=== PATIENT | female | born 1945 | race Caucasian/White ===

== ENCOUNTER 2017-06-01 16:48 | Inpatient (IN) ==
[2017-06-01 18:07] LABS: Basophils # 0.1 10*3/uL (0.0-0.2); Basophils % 0.9 % (0.0-0.8); Eosinophils # 0.1 10*3/uL (0.0-0.87); Eosinophils % 0.6 % (0.00-10.9); Hematocrit 34.2 VOL% (35.7-47.0); Hemoglobin 11.1 GM/DL (12.0-16.0); Immature Granulocytes % 0.6 %; Immature Granulocytes Absolute 0.05 #; Lymphocytes # 1.9 10*3/uL (1.4-4.0); Lymphocytes % 21.4 % (21.3-54.2); Mean Corpuscular HGB Conc 32.5 GM/DL (32-36); Mean Corpuscular Hemoglobin 31 PG (27-34); Mean Corpuscular Volume 95.3 FL (87-102); Mean Platelet Volume 10.6 FL (9.6-12.0); Monocytes # 0.7 10*3/uL (0.11-0.8); Monocytes % 8.3 % (1.7-12.7); Neutrophils # 6.1 10*3/uL (1.4-7.4); Neutrophils % 68.2 % (38.7-73.9); Platelet Count 172 T/CUMM (130-400); Red Blood Count 3.59 MC/CUMM (3.8-5.5); Red Cell Distribution Width 14.6 % (9.3-17.3); White Blood Count 8.9 T/CUMM (4-12)
[2017-06-01] MEDS ORDERED: FUROSEMIDE 40 MG/4 ML VIAL IV STA (19:28)
[2017-06-01] MEDS ORDERED: FUROSEMIDE 40 MG/4 ML VIAL ONE (20:12)
[2017-06-01 20:14] LABS: Apearance,Urine Slightly Hazy (Clear); Bacteria,Urine Occasional /HPF (Few); Bilirubin,Urine Negative (Negative); Blood, Urine Negative (Negative); Glucose,Urine (UA) Negative (Negative); Ketones,Urine Negative (Negative); Nitrite,Urine Negative (Negative); Protein,Urine Negative; RBC,Urine 1 /HPF (0-4); Squamous Epithelial Cell,Urine Occasional /HPF (0-10); Urine Color Yellow (Yellow); Urine Specific Gravity 1.012 (1.001-1.035); WBC,Urine 5 /HPF (0-6)
[2017-06-01] MEDS ORDERED: ACETAMINOPHEN 500 MG TABLET PO STA (20:57)
[2017-06-01] MEDS ORDERED: ACETAMINOPHEN 500 MG TABLET ONE (21:06)
[2017-06-01] MEDS ORDERED: cefTRIAXone 1,000 MG VIAL ONE (22:14)
[2017-06-01] MEDS ORDERED: ONDANSETRON 4 MG/2 ML VIAL IV PRN (22:27)
[2017-06-01] MEDS ORDERED: NITROGLYCERIN SL 0.4 MG TABLET SL PRN (22:28)
[2017-06-01] MEDS: cefTRIAXone 1,000 MG in SYRINGE 1 EACH IV SCH (22:35)
[2017-06-02 06:48] LABS: Red Blood Count 3.52 MC/CUMM (3.8-5.5); White Blood Count 7.8 T/CUMM (4-12)
[2017-06-02 06:49] LABS: Basophils # 0.1 10*3/uL (0.0-0.2); Basophils % 0.8 % (0.0-0.8); Eosinophils # 0.1 10*3/uL (0.0-0.87); Eosinophils % 1.2 % (0.00-10.9); Immature Granulocytes % 0.4 %; Immature Granulocytes Absolute 0.03 #; Lymphocytes # 1.7 10*3/uL (1.4-4.0); Lymphocytes % 21.9 % (21.3-54.2); Mean Corpuscular HGB Conc 32.4 GM/DL (32-36); Mean Corpuscular Hemoglobin 31 PG (27-34); Mean Corpuscular Volume 96.6 FL (87-102); Mean Platelet Volume 10.7 FL (9.6-12.0); Monocytes # 0.8 10*3/uL (0.11-0.8); Monocytes % 9.6 % (1.7-12.7); Neutrophils # 5.2 10*3/uL (1.4-7.4); Neutrophils % 66.1 % (38.7-73.9); Platelet Count 140 T/CUMM (130-400); Red Cell Distribution Width 14.8 % (9.3-17.3)
[2017-06-02 07:22] LABS: Calcium 8.5 MG/DL (8.5-10.1); Osmolality,Calculated 283.4 MOS/KG (273-304); Potassium 3.8 MMOL/L (3.5-5.1)
[2017-06-02] MEDS ORDERED: hydrALAZINE 20 MG/1 ML VIAL IV PRN (07:52)
[2017-06-02] MEDS ORDERED: FUROSEMIDE 40 MG TABLET PO SCH (09:00)
[2017-06-02] MEDS: OLMESARTAN 20 MG TABLET PO SCH (09:30)
[2017-06-02] MEDS: AZITHROMYCIN 250 MG TABLET PO SCH (09:30)
[2017-06-02] MEDS: CITALOPRAM 20 MG TABLET PO SCH (09:30)
[2017-06-02] MEDS: ALLOPURINOL 300 MG TABLET PO SCH (09:31)
[2017-06-02] MEDS: METOPROLOL TARTRATE 50 MG TABLET PO SCH ×2 (09:31→21:27)
[2017-06-02] MEDS: CLOPIDOGREL 75 MG TABLET PO SCH (09:31)
[2017-06-02] MEDS: POTASSIUM CHLORIDE 20 MEQ TABLET PO SCH (09:31)
[2017-06-02] MEDS: PANTOPRAZOLE 40 MG TABLET PO SCH (09:32)
[2017-06-02] MEDS: FUROSEMIDE 40 MG/4 ML VIAL IV SCH ×2 (09:33→15:33)
[2017-06-02] MEDS: APIXABAN 5 MG TABLET PO SCH ×2 (09:33→21:26)
[2017-06-02] MEDS: ASPIRIN CHEW 81 MG TABLET PO SCH (09:33)
[2017-06-02] MEDS: ALBUTEROL/IPRATROPIUM 3 ML NEB RESP TX SCH ×2 (13:39→19:50)
[2017-06-02] MEDS: ATORVASTATIN 40 MG TABLET PO SCH (21:26)
[2017-06-02] MEDS: cefTRIAXone 1,000 MG in SYRINGE 1 EACH IV SCH (21:27)
[2017-06-03] MEDS: ALBUTEROL/IPRATROPIUM 3 ML NEB RESP TX SCH ×4 (00:42→19:50)
[2017-06-03] MEDS: CITALOPRAM 20 MG TABLET PO SCH (09:57)
[2017-06-03] MEDS: POTASSIUM CHLORIDE 20 MEQ TABLET PO SCH (09:57)
[2017-06-03] MEDS: ASPIRIN CHEW 81 MG TABLET PO SCH (09:57)
[2017-06-03] MEDS: OLMESARTAN 20 MG TABLET PO SCH (09:57)
[2017-06-03] MEDS: ALLOPURINOL 300 MG TABLET PO SCH (09:57)
[2017-06-03] MEDS: APIXABAN 5 MG TABLET PO SCH ×2 (09:57→20:09)
[2017-06-03] MEDS: CLOPIDOGREL 75 MG TABLET PO SCH (09:58)
[2017-06-03] MEDS: AZITHROMYCIN 250 MG TABLET PO SCH (09:58)
[2017-06-03] MEDS: PANTOPRAZOLE 40 MG TABLET PO SCH (09:58)
[2017-06-03] MEDS: METOPROLOL TARTRATE 50 MG TABLET PO SCH ×2 (09:58→20:09)
[2017-06-03] MEDS: FUROSEMIDE 40 MG/4 ML VIAL IV SCH ×2 (09:59→15:39)
[2017-06-03] MEDS: cefTRIAXone 1,000 MG in SYRINGE 1 EACH IV SCH (20:08)
[2017-06-03] MEDS: ATORVASTATIN 40 MG TABLET PO SCH (20:09)
[2017-06-04] MEDS: ALBUTEROL/IPRATROPIUM 3 ML NEB RESP TX SCH ×4 (00:05→19:06)
[2017-06-04 05:44] LABS: Basophils # 0.1 10*3/uL (0.0-0.2); Basophils % 0.9 % (0.0-0.8); Eosinophils # 0.1 10*3/uL (0.0-0.87); Eosinophils % 1.4 % (0.00-10.9); Hematocrit 30.6 VOL% (35.7-47.0); Hemoglobin 10.1 GM/DL (12.0-16.0); Immature Granulocytes % 0.3 %; Immature Granulocytes Absolute 0.03 #; Lymphocytes % 23.3 % (21.3-54.2); Mean Corpuscular Hemoglobin 31 PG (27-34); Mean Corpuscular Volume 94.2 FL (87-102); Mean Platelet Volume 11.4 FL (9.6-12.0); Monocytes # 0.7 10*3/uL (0.11-0.8); Monocytes % 8.1 % (1.7-12.7); Neutrophils # 5.7 10*3/uL (1.4-7.4); Platelet Count 178 T/CUMM (130-400); Red Blood Count 3.25 MC/CUMM (3.8-5.5); Red Cell Distribution Width 14.6 % (9.3-17.3); White Blood Count 8.6 T/CUMM (4-12)
[2017-06-04 06:24] LABS: Calcium 8.5 MG/DL (8.5-10.1); Magnesium 1.9 MG/DL (1.8-2.4); Osmolality,Calculated 284.3 MOS/KG (273-304); Potassium 3.5 MMOL/L (3.5-5.1)
[2017-06-04] MEDS: POTASSIUM CHLORIDE 20 MEQ TABLET PO SCH (09:17)
[2017-06-04] MEDS: OLMESARTAN 20 MG TABLET PO SCH (09:17)
[2017-06-04] MEDS: METOPROLOL TARTRATE 50 MG TABLET PO SCH ×2 (09:17→20:58)
[2017-06-04] MEDS: PANTOPRAZOLE 40 MG TABLET PO SCH (09:17)
[2017-06-04] MEDS: AZITHROMYCIN 250 MG TABLET PO SCH (09:17)
[2017-06-04] MEDS: APIXABAN 5 MG TABLET PO SCH ×2 (09:17→20:58)
[2017-06-04] MEDS: ALLOPURINOL 300 MG TABLET PO SCH (09:17)
[2017-06-04] MEDS: CLOPIDOGREL 75 MG TABLET PO SCH (09:17)
[2017-06-04] MEDS: CITALOPRAM 20 MG TABLET PO SCH (09:17)
[2017-06-04] MEDS: FUROSEMIDE 40 MG/4 ML VIAL IV SCH ×2 (09:17→15:52)
[2017-06-04] MEDS: ASPIRIN CHEW 81 MG TABLET PO SCH (09:18)
[2017-06-04] MEDS: guaiFENesin/DM ER 600-30 MG TABLET PO SCH (20:57)
[2017-06-04] MEDS: BENZONATATE 100 MG CAPSULE PO SCH (20:57)
[2017-06-04] MEDS: ATORVASTATIN 40 MG TABLET PO SCH (20:57)
[2017-06-04] MEDS: cefTRIAXone 1,000 MG in SYRINGE 1 EACH IV SCH (20:58)
[2017-06-05] MEDS ORDERED: ACETAMINOPHEN 325 MG TABLET PO PRN (00:30)
[2017-06-05] MEDS: ALBUTEROL/IPRATROPIUM 3 ML NEB RESP TX SCH ×4 (00:47→19:30)
[2017-06-05] MEDS: LEVOFLOXACIN INJ 750 MG in PREMIX 1 EACH IV SCH (01:00)
[2017-06-05 06:27] LABS: Basophils # 0.1 10*3/uL (0.0-0.2); Eosinophils # 0.3 10*3/uL (0.0-0.87); Eosinophils % 3.2 % (0.00-10.9); Hematocrit 31.2 VOL% (35.7-47.0); Immature Granulocytes % 0.4 %; Immature Granulocytes Absolute 0.03 #; Lymphocytes % 25.2 % (21.3-54.2); Mean Corpuscular HGB Conc 32.1 GM/DL (32-36); Mean Corpuscular Hemoglobin 31 PG (27-34); Mean Corpuscular Volume 96.9 FL (87-102); Mean Platelet Volume 11.2 FL (9.6-12.0); Monocytes # 0.7 10*3/uL (0.11-0.8); Monocytes % 8.6 % (1.7-12.7); Neutrophils % 61.6 % (38.7-73.9); Platelet Count 187 T/CUMM (130-400); Red Blood Count 3.22 MC/CUMM (3.8-5.5); Red Cell Distribution Width 14.7 % (9.3-17.3); White Blood Count 8.1 T/CUMM (4-12)
[2017-06-05 06:43] LABS: Calcium 8.1 MG/DL (8.5-10.1); Magnesium 1.8 MG/DL (1.8-2.4); Osmolality,Calculated 283.3 MOS/KG (273-304); Potassium 3.6 MMOL/L (3.5-5.1)
[2017-06-05] MEDS: FUROSEMIDE 40 MG/4 ML VIAL IV SCH (09:43)
[2017-06-05] MEDS: APIXABAN 5 MG TABLET PO SCH ×2 (09:44→22:18)
[2017-06-05] MEDS: CLOPIDOGREL 75 MG TABLET PO SCH (09:44)
[2017-06-05] MEDS: OLMESARTAN 20 MG TABLET PO SCH (09:45)
[2017-06-05] MEDS: METOPROLOL TARTRATE 50 MG TABLET PO SCH ×2 (09:45→22:18)
[2017-06-05] MEDS: ALLOPURINOL 300 MG TABLET PO SCH (09:45)
[2017-06-05] MEDS: PANTOPRAZOLE 40 MG TABLET PO SCH (09:45)
[2017-06-05] MEDS: POTASSIUM CHLORIDE 20 MEQ TABLET PO SCH (09:46)
[2017-06-05] MEDS: CITALOPRAM 20 MG TABLET PO SCH (09:46)
[2017-06-05] MEDS: ASPIRIN CHEW 81 MG TABLET PO SCH (09:46)
[2017-06-05] MEDS: guaiFENesin/DM ER 600-30 MG TABLET PO SCH ×2 (09:46→22:18)
[2017-06-05] MEDS: BENZONATATE 100 MG CAPSULE PO SCH ×3 (09:46→22:18)
[2017-06-05] MEDS: ATORVASTATIN 40 MG TABLET PO SCH (22:18)
[2017-06-05] MEDS: HYDROcodone/CHLORPHENIRAMINE ER 5 ML UDCUP PO PRN (23:29)
[2017-06-06] MEDS: ALBUTEROL/IPRATROPIUM 3 ML NEB RESP TX SCH ×4 (01:45→19:32)
[2017-06-06] MEDS: LEVOFLOXACIN INJ 750 MG in PREMIX 1 EACH IV SCH (04:21)
[2017-06-06] MEDS ORDERED: COLCHICINE 0.6 MG TABLET PO ONE (04:40)
[2017-06-06 06:01] LABS: Basophils # 0.1 10*3/uL (0.0-0.2); Basophils % 1.3 % (0.0-0.8); Eosinophils # 0.2 10*3/uL (0.0-0.87); Eosinophils % 3.4 % (0.00-10.9); Hematocrit 29.8 VOL% (35.7-47.0); Hemoglobin 9.7 GM/DL (12.0-16.0); Immature Granulocytes % 0.3 %; Immature Granulocytes Absolute 0.02 #; Lymphocytes # 1.9 10*3/uL (1.4-4.0); Lymphocytes % 29.9 % (21.3-54.2); Mean Corpuscular HGB Conc 32.6 GM/DL (32-36); Mean Corpuscular Hemoglobin 31 PG (27-34); Mean Corpuscular Volume 95.5 FL (87-102); Mean Platelet Volume 11.1 FL (9.6-12.0); Monocytes # 0.5 10*3/uL (0.11-0.8); Monocytes % 7.8 % (1.7-12.7); Neutrophils # 3.6 10*3/uL (1.4-7.4); Neutrophils % 57.3 % (38.7-73.9); Platelet Count 189 T/CUMM (130-400); Red Blood Count 3.12 MC/CUMM (3.8-5.5); Red Cell Distribution Width 14.7 % (9.3-17.3); White Blood Count 6.3 T/CUMM (4-12)
[2017-06-06 06:33] LABS: Calcium 8.3 MG/DL (8.5-10.1); Magnesium 1.8 MG/DL (1.8-2.4); Osmolality,Calculated 285.3 MOS/KG (273-304)
[2017-06-06] MEDS: ASPIRIN CHEW 81 MG TABLET PO SCH (10:09)
[2017-06-06] MEDS: guaiFENesin/DM ER 600-30 MG TABLET PO SCH ×2 (10:09→20:52)
[2017-06-06] MEDS: APIXABAN 5 MG TABLET PO SCH ×2 (10:10→20:51)
[2017-06-06] MEDS: OLMESARTAN 20 MG TABLET PO SCH (10:10)
[2017-06-06] MEDS: CITALOPRAM 20 MG TABLET PO SCH (10:10)
[2017-06-06] MEDS: METOPROLOL TARTRATE 50 MG TABLET PO SCH ×2 (10:11→20:51)
[2017-06-06] MEDS: ALLOPURINOL 300 MG TABLET PO SCH (10:11)
[2017-06-06] MEDS: PANTOPRAZOLE 40 MG TABLET PO SCH (10:11)
[2017-06-06] MEDS: BENZONATATE 100 MG CAPSULE PO SCH ×3 (10:11→20:51)
[2017-06-06] MEDS: COLCHICINE 0.6 MG TABLET PO SCH ×2 (17:43→20:04)
[2017-06-06] MEDS: ATORVASTATIN 40 MG TABLET PO SCH (20:51)
[2017-06-07] MEDS: ALBUTEROL/IPRATROPIUM 3 ML NEB RESP TX SCH ×4 (00:03→19:53)
[2017-06-07 06:57] LABS: Basophils # 0.1 10*3/uL (0.0-0.2); Basophils % 1.5 % (0.0-0.8); Eosinophils # 0.2 10*3/uL (0.0-0.87); Eosinophils % 3.8 % (0.00-10.9); Hematocrit 30.3 VOL% (35.7-47.0); Hemoglobin 9.6 GM/DL (12.0-16.0); Immature Granulocytes % 0.4 %; Immature Granulocytes Absolute 0.02 #; Lymphocytes # 1.9 10*3/uL (1.4-4.0); Lymphocytes % 35.5 % (21.3-54.2); Mean Corpuscular HGB Conc 31.7 GM/DL (32-36); Mean Corpuscular Hemoglobin 31 PG (27-34); Mean Corpuscular Volume 98.1 FL (87-102); Mean Platelet Volume 10.8 FL (9.6-12.0); Monocytes # 0.5 10*3/uL (0.11-0.8); Monocytes % 8.9 % (1.7-12.7); Neutrophils # 2.6 10*3/uL (1.4-7.4); Neutrophils % 49.9 % (38.7-73.9); Platelet Count 177 T/CUMM (130-400); Red Blood Count 3.09 MC/CUMM (3.8-5.5); Red Cell Distribution Width 14.6 % (9.3-17.3); White Blood Count 5.3 T/CUMM (4-12)
[2017-06-07 07:11] LABS: Calcium 8.8 MG/DL (8.5-10.1); Magnesium 1.8 MG/DL (1.8-2.4); Osmolality,Calculated 283.3 MOS/KG (273-304); Potassium 4.1 MMOL/L (3.5-5.1)
[2017-06-07] MEDS: LEVOFLOXACIN INJ 750 MG in PREMIX 1 EACH IV SCH (09:30)
[2017-06-07] MEDS: ALLOPURINOL 300 MG TABLET PO SCH (10:24)
[2017-06-07] MEDS: OLMESARTAN 20 MG TABLET PO SCH (10:25)
[2017-06-07] MEDS: CITALOPRAM 20 MG TABLET PO SCH (10:25)
[2017-06-07] MEDS: BENZONATATE 100 MG CAPSULE PO SCH ×3 (10:25→21:12)
[2017-06-07] MEDS: LEVOFLOXACIN 750 MG TABLET PO SCH (10:25)
[2017-06-07] MEDS: METOPROLOL TARTRATE 50 MG TABLET PO SCH ×2 (10:25→21:03)
[2017-06-07] MEDS: COLCHICINE 0.6 MG TABLET PO SCH ×2 (10:25→21:03)
[2017-06-07] MEDS: PANTOPRAZOLE 40 MG TABLET PO SCH (10:25)
[2017-06-07] MEDS: ASPIRIN CHEW 81 MG TABLET PO SCH (10:26)
[2017-06-07] MEDS: APIXABAN 5 MG TABLET PO SCH ×2 (10:26→21:02)
[2017-06-07] MEDS: guaiFENesin/DM ER 600-30 MG TABLET PO SCH ×2 (10:26→21:02)
[2017-06-07] MEDS: HYDROcodone/CHLORPHENIRAMINE ER 5 ML UDCUP PO PRN (16:24)
[2017-06-07] MEDS: ATORVASTATIN 40 MG TABLET PO SCH (21:03)
[2017-06-08] MEDS: HYDROcodone/CHLORPHENIRAMINE ER 5 ML UDCUP PO PRN (00:02)
[2017-06-08] MEDS: ALBUTEROL/IPRATROPIUM 3 ML NEB RESP TX SCH ×4 (00:12→18:57)
[2017-06-08 03:55] LABS: ABG Base Excess 2.7 MMOL/L (-2.5-2.5); ABG HCO3 27.2 MMOL/L (20-26); ABG Oxygen Saturation 94.3 % (95-100); ABG PCO2 41.5 MM HG (35-48); ABG PH 7.434 (7.35-7.45); ABG PO2 76.7 MM HG (80-95); ABG TCO2 28.5 MMOL/L (23-27)
[2017-06-08 05:57] LABS: Basophils # 0.1 10*3/uL (0.0-0.2); Basophils % 1.7 % (0.0-0.8); Eosinophils # 0.2 10*3/uL (0.0-0.87); Eosinophils % 3.6 % (0.00-10.9); Hematocrit 30.5 VOL% (35.7-47.0); Hemoglobin 9.7 GM/DL (12.0-16.0); Immature Granulocytes % 0.8 %; Immature Granulocytes Absolute 0.04 #; Lymphocytes # 1.7 10*3/uL (1.4-4.0); Lymphocytes % 32.1 % (21.3-54.2); Mean Corpuscular HGB Conc 31.8 GM/DL (32-36); Mean Corpuscular Hemoglobin 31 PG (27-34); Mean Corpuscular Volume 98.7 FL (87-102); Mean Platelet Volume 11.2 FL (9.6-12.0); Monocytes # 0.4 10*3/uL (0.11-0.8); Monocytes % 8.1 % (1.7-12.7); Neutrophils # 2.9 10*3/uL (1.4-7.4); Neutrophils % 53.7 % (38.7-73.9); Platelet Count 188 T/CUMM (130-400); Red Blood Count 3.09 MC/CUMM (3.8-5.5); Red Cell Distribution Width 14.5 % (9.3-17.3); White Blood Count 5.3 T/CUMM (4-12)
[2017-06-08 06:28] LABS: Calcium 8.7 MG/DL (8.5-10.1); Magnesium 1.7 MG/DL (1.8-2.4); Osmolality,Calculated 284.3 MOS/KG (273-304); Potassium 4.3 MMOL/L (3.5-5.1)
[2017-06-08] MEDS: LEVOFLOXACIN 750 MG TABLET PO SCH (09:28)
[2017-06-08] MEDS: guaiFENesin/DM ER 600-30 MG TABLET PO SCH ×2 (09:29→21:09)
[2017-06-08] MEDS: COLCHICINE 0.6 MG TABLET PO SCH ×2 (09:29→21:08)
[2017-06-08] MEDS: METOPROLOL TARTRATE 50 MG TABLET PO SCH ×2 (09:29→21:09)
[2017-06-08] MEDS: ALLOPURINOL 300 MG TABLET PO SCH (09:29)
[2017-06-08] MEDS: OLMESARTAN 20 MG TABLET PO SCH (09:29)
[2017-06-08] MEDS: BENZONATATE 100 MG CAPSULE PO SCH ×3 (09:29→21:09)
[2017-06-08] MEDS: POTASSIUM CHLORIDE 20 MEQ TABLET PO SCH (09:30)
[2017-06-08] MEDS: APIXABAN 5 MG TABLET PO SCH ×2 (09:30→21:09)
[2017-06-08] MEDS: PANTOPRAZOLE 40 MG TABLET PO SCH (09:30)
[2017-06-08] MEDS: ASPIRIN CHEW 81 MG TABLET PO SCH (09:30)
[2017-06-08] MEDS: CITALOPRAM 20 MG TABLET PO SCH (09:30)
[2017-06-08] MEDS: FUROSEMIDE 40 MG TABLET PO SCH (15:24)
[2017-06-08] MEDS: ATORVASTATIN 40 MG TABLET PO SCH (21:08)
[2017-06-09] MEDS: ALBUTEROL/IPRATROPIUM 3 ML NEB RESP TX SCH ×3 (00:52→13:43)
[2017-06-09] MEDS: HYDROcodone/CHLORPHENIRAMINE ER 5 ML UDCUP PO PRN (01:01)
[2017-06-09 06:36] LABS: Basophils # 0.1 10*3/uL (0.0-0.2); Basophils % 1.3 % (0.0-0.8); Eosinophils # 0.2 10*3/uL (0.0-0.87); Eosinophils % 3.2 % (0.00-10.9); Hematocrit 29.9 VOL% (35.7-47.0); Hemoglobin 9.5 GM/DL (12.0-16.0); Immature Granulocytes % 0.6 %; Immature Granulocytes Absolute 0.03 #; Lymphocytes # 1.8 10*3/uL (1.4-4.0); Lymphocytes % 34.9 % (21.3-54.2); Mean Corpuscular HGB Conc 31.8 GM/DL (32-36); Mean Corpuscular Hemoglobin 31 PG (27-34); Mean Corpuscular Volume 96.5 FL (87-102); Monocytes # 0.4 10*3/uL (0.11-0.8); Monocytes % 8.4 % (1.7-12.7); Neutrophils # 2.7 10*3/uL (1.4-7.4); Neutrophils % 51.6 % (38.7-73.9); Platelet Count 193 T/CUMM (130-400); Red Cell Distribution Width 14.7 % (9.3-17.3); White Blood Count 5.2 T/CUMM (4-12)
[2017-06-09 06:55] LABS: Calcium 8.6 MG/DL (8.5-10.1); Magnesium 1.8 MG/DL (1.8-2.4); Osmolality,Calculated 283.3 MOS/KG (273-304); Potassium 4.2 MMOL/L (3.5-5.1)
[2017-06-09] MEDS: ASPIRIN CHEW 81 MG TABLET PO SCH (09:18)
[2017-06-09] MEDS: COLCHICINE 0.6 MG TABLET PO SCH (09:18)
[2017-06-09] MEDS: PANTOPRAZOLE 40 MG TABLET PO SCH (09:18)
[2017-06-09] MEDS: POTASSIUM CHLORIDE 20 MEQ TABLET PO SCH (09:18)
[2017-06-09] MEDS: LEVOFLOXACIN 750 MG TABLET PO SCH (09:18)
[2017-06-09] MEDS: APIXABAN 5 MG TABLET PO SCH (09:19)
[2017-06-09] MEDS: METOPROLOL TARTRATE 50 MG TABLET PO SCH (09:19)
[2017-06-09] MEDS: FUROSEMIDE 40 MG TABLET PO SCH (09:19)
[2017-06-09] MEDS: CITALOPRAM 20 MG TABLET PO SCH (09:19)
[2017-06-09] MEDS: ALLOPURINOL 300 MG TABLET PO SCH (09:19)
[2017-06-09] MEDS: OLMESARTAN 20 MG TABLET PO SCH (09:19)
[2017-06-09] MEDS: guaiFENesin/DM ER 600-30 MG TABLET PO SCH (10:11)
[2017-06-09] MEDS: BENZONATATE 100 MG CAPSULE PO SCH (10:11)
[2017-06-09 12:05] VITALS: BP 182/74
== END 2017-06-09 15:36 | disposition home health service (06) | DRG 292 ==
LOC: N.ED 16:48 → N.EDINP 21:03 → SUATTDRO 21:04 → N.2E 21:45
PROVIDERS: ADMIT Internal Medicine Infectious Disease; ATTEND Internal Medicine

== ENCOUNTER 2019-04-13 15:10 | Inpatient (IN) ==
[2019-04-13] MEDS ORDERED: SODIUM CHLORIDE 0.9% 500 ML IV STA (16:24)
[2019-04-13 16:37] LABS: Basophils # 0.1 10*3/uL (0.0-0.2); Basophils % 1.3 % (0.0-0.8); Eosinophils # 0.1 10*3/uL (0.0-0.87); Eosinophils % 1.4 % (0.00-10.9); Hematocrit 32.7 VOL% (35.7-47.0); Hemoglobin 10.6 GM/DL (12.0-16.0); Immature Granulocytes % 0.6 %; Immature Granulocytes Absolute 0.06 #; Lymphocytes % 32.2 % (21.3-54.2); Mean Corpuscular HGB Conc 32.4 GM/DL (32-36); Mean Corpuscular Volume 100.9 FL (87-102); Mean Platelet Volume 11.2 FL (9.6-12.0); Monocytes % 4.8 % (1.7-12.7); NRBC # 0.06 10*3/uL; Neutrophils % 59.7 % (38.7-73.9); Platelet Count 188 T/CUMM (130-400); Red Blood Count 3.24 MC/CUMM (3.8-5.5); Red Cell Distribution Width 14.8 % (9.3-17.3); White Blood Count 9.3 T/CUMM (4-12)
[2019-04-13 16:50] LABS: INR 1.2; PT Patient Result 12.6 SECS (9.6-12.2)
[2019-04-13 16:59] LABS: Albumin 3.8 G/DL (3.4-5.0); Bilirubin,Total 0.4 MG/DL (0.2-1.0); Calcium 9.1 MG/DL (8.5-10.1)
[2019-04-13] MEDS ORDERED: ALBUTEROL NEB SOLN 5 MG/ML 20 ML/BOTTLE CONT NEB STA (17:05)
[2019-04-13] MEDS ORDERED: INSULIN REGULAR 100 UNIT/ML IV ONE (17:07)
[2019-04-13] MEDS ORDERED: CALCIUM CHLORIDE 1,000 MG/10 ML SYRINGE IV STA (17:07)
[2019-04-13] MEDS ORDERED: DEXTROSE 50% 25 GM/50 ML VIAL IV STA (17:07)
[2019-04-13] MEDS ORDERED: SODIUM BICARBONATE 50 MEQ/50 ML VIAL IV STA (17:08)
[2019-04-13] MEDS ORDERED: DEXTROSE 50% 25 GM/50 ML SYRINGE IV ONE (17:42)
[2019-04-13] MEDS: ONDANSETRON 4 MG/2 ML VIAL IV PRN (17:54)
[2019-04-13] MEDS: SODIUM CHLORIDE 0.9% 1,000 ML IV SCH (18:50)
[2019-04-13 19:29] LABS: Apearance,Urine CLEAR (Clear); Bilirubin,Urine Negative (Negative); Blood, Urine Negative (Negative); Glucose,Urine (UA) Negative (Negative); Hyaline Casts,Urine 3 /LPF (0-3); Ketones,Urine Negative (Negative); Mucus,Urine Occasional /LPF (Occasional); Nitrite,Urine Negative (Negative); Protein,Urine Negative; Squamous Epithelial Cell,Urine Occasional /HPF (0-10); Urine Color Straw (Yellow); Urine Specific Gravity 1.006 (1.001-1.035); Urine Urobilinogen < 2.0 EU/DL (0.2-1.0)
[2019-04-13 20:19] LABS: Calcium 9.8 MG/DL (8.5-10.1); Osmolality,Calculated 304.7 MOS/KG (273-304)
[2019-04-13] MEDS: DOCUSATE SODIUM 100 MG CAPSULE PO SCH (20:29)
[2019-04-13] MEDS: APIXABAN 2.5 MG TABLET PO SCH (20:29)
[2019-04-13] MEDS: ATORVASTATIN 40 MG TABLET PO SCH (20:29)
[2019-04-13] MEDS ORDERED: APIXABAN 5 MG TABLET PO SCH (21:00)
[2019-04-14] MEDS: ACETAMINOPHEN 325 MG TABLET PO PRN ×2 (02:42→18:00)
[2019-04-14 04:59] LABS: Calcium 9.2 MG/DL (8.5-10.1); Osmolality,Calculated 302.5 MOS/KG (273-304)
[2019-04-14] MEDS: SODIUM CHLORIDE 0.9% 1,000 ML IV SCH ×2 (08:21→21:35)
[2019-04-14 09:09] LABS: Basophils # 0.1 10*3/uL (0.0-0.2); Basophils % 0.7 % (0.0-0.8); Eosinophils # 0.1 10*3/uL (0.0-0.87); Hematocrit 30.2 VOL% (35.7-47.0); Hemoglobin 9.8 GM/DL (12.0-16.0); Immature Granulocytes % 0.4 %; Immature Granulocytes Absolute 0.03 #; Lymphocytes # 2.6 10*3/uL (1.4-4.0); Lymphocytes % 35.2 % (21.3-54.2); Mean Corpuscular HGB Conc 32.5 GM/DL (32-36); Mean Corpuscular Volume 101.3 FL (87-102); Mean Platelet Volume 11.5 FL (9.6-12.0); Monocytes % 5.7 % (1.7-12.7); Platelet Count 139 T/CUMM (130-400); Red Blood Count 2.98 MC/CUMM (3.8-5.5); Red Cell Distribution Width 14.8 % (9.3-17.3); White Blood Count 7.4 T/CUMM (4-12)
[2019-04-14] MEDS: OLMESARTAN 20 MG TABLET PO SCH (09:16)
[2019-04-14] MEDS: CITALOPRAM 20 MG TABLET PO SCH (09:17)
[2019-04-14] MEDS: ASPIRIN CHEW 81 MG TABLET PO SCH (09:17)
[2019-04-14] MEDS: APIXABAN 2.5 MG TABLET PO SCH ×2 (09:18→20:18)
[2019-04-14] MEDS: PANTOPRAZOLE 40 MG TABLET PO SCH ×2 (09:18→09:22)
[2019-04-14] MEDS: DOCUSATE SODIUM 100 MG CAPSULE PO SCH ×2 (09:21→20:18)
[2019-04-14] MEDS: ALLOPURINOL 300 MG TABLET PO SCH (09:21)
[2019-04-14] MEDS: MULTIVITAMIN (CENTRUM) TABLET PO SCH (09:21)
[2019-04-14] MEDS: SODIUM POLYSTYRENE SULFATE 15 GM/60 ML BOTTLE PO SCH ×3 (12:02→22:49)
[2019-04-14] MEDS: ATORVASTATIN 40 MG TABLET PO SCH (20:18)
[2019-04-15 04:44] LABS: Basophils # 0.1 10*3/uL (0.0-0.2); Basophils % 0.6 % (0.0-0.8); Eosinophils # 0.2 10*3/uL (0.0-0.87); Eosinophils % 1.7 % (0.00-10.9); Hematocrit 30.5 VOL% (35.7-47.0); Immature Granulocytes % 0.2 %; Immature Granulocytes Absolute 0.02 #; Lymphocytes # 1.3 10*3/uL (1.4-4.0); Lymphocytes % 12.7 % (21.3-54.2); Mean Corpuscular HGB Conc 32.8 GM/DL (32-36); Mean Corpuscular Volume 100.3 FL (87-102); Monocytes % 4.3 % (1.7-12.7); Neutrophils % 80.5 % (38.7-73.9); Platelet Count 157 T/CUMM (130-400); Red Blood Count 3.04 MC/CUMM (3.8-5.5); Red Cell Distribution Width 14.7 % (9.3-17.3); White Blood Count 9.9 T/CUMM (4-12)
[2019-04-15 05:00] LABS: Calcium 8.6 MG/DL (8.5-10.1); Osmolality,Calculated 293.5 MOS/KG (273-304)
[2019-04-15] MEDS: ONDANSETRON 4 MG/2 ML VIAL IV PRN (06:20)
[2019-04-15] MEDS: SODIUM POLYSTYRENE SULFATE 15 GM/60 ML BOTTLE PO SCH ×3 (07:45→23:43)
[2019-04-15] MEDS: ASPIRIN CHEW 81 MG TABLET PO SCH (10:06)
[2019-04-15] MEDS: APIXABAN 2.5 MG TABLET PO SCH ×2 (10:06→21:11)
[2019-04-15] MEDS: MULTIVITAMIN (CENTRUM) TABLET PO SCH (10:07)
[2019-04-15] MEDS: ALLOPURINOL 300 MG TABLET PO SCH (10:07)
[2019-04-15] MEDS: PANTOPRAZOLE 40 MG TABLET PO SCH ×2 (10:08→10:11)
[2019-04-15] MEDS: OLMESARTAN 20 MG TABLET PO SCH (10:08)
[2019-04-15] MEDS: DOCUSATE SODIUM 100 MG CAPSULE PO SCH ×2 (10:24→21:12)
[2019-04-15] MEDS: SODIUM CHLORIDE 0.9% 1,000 ML IV SCH (11:31)
[2019-04-15] MEDS ORDERED: MAGNESIUM SULF RIDER 4 GM in PREMIX 1 EACH IV PRN (11:46)
[2019-04-15] MEDS ORDERED: MAGNESIUM SULF RIDER 2 GM in PREMIX 1 EACH IV PRN (11:46)
[2019-04-15] MEDS: ACETAMINOPHEN 325 MG TABLET PO PRN ×2 (13:13→21:11)
[2019-04-15] MEDS: CITALOPRAM 20 MG TABLET PO SCH ×2 (17:35→21:11)
[2019-04-15] MEDS: ATORVASTATIN 40 MG TABLET PO SCH (21:11)
[2019-04-15] MEDS: cloNIDine 0.1 MG TABLET PO SCH (21:11)
[2019-04-16 04:26] LABS: Basophils % 0.5 % (0.0-0.8); Eosinophils # 0.2 10*3/uL (0.0-0.87); Eosinophils % 1.8 % (0.00-10.9); Hematocrit 29.9 VOL% (35.7-47.0); Hemoglobin 9.9 GM/DL (12.0-16.0); Immature Granulocytes % 0.5 %; Immature Granulocytes Absolute 0.04 #; Lymphocytes # 1.5 10*3/uL (1.4-4.0); Lymphocytes % 17.4 % (21.3-54.2); Mean Corpuscular HGB Conc 33.1 GM/DL (32-36); Mean Platelet Volume 11.7 FL (9.6-12.0); Monocytes % 8.1 % (1.7-12.7); Neutrophils % 71.7 % (38.7-73.9); Platelet Count 142 T/CUMM (130-400); Red Blood Count 2.96 MC/CUMM (3.8-5.5); Red Cell Distribution Width 14.8 % (9.3-17.3); White Blood Count 8.8 T/CUMM (4-12)
[2019-04-16 04:40] LABS: Calcium 8.4 MG/DL (8.5-10.1); Osmolality,Calculated 287.4 MOS/KG (273-304)
[2019-04-16] MEDS: DOCUSATE SODIUM 100 MG CAPSULE PO SCH ×2 (08:54→21:30)
[2019-04-16] MEDS: APIXABAN 2.5 MG TABLET PO SCH ×2 (08:54→21:29)
[2019-04-16] MEDS: ASPIRIN CHEW 81 MG TABLET PO SCH (08:54)
[2019-04-16] MEDS: cloNIDine 0.1 MG TABLET PO SCH ×2 (08:54→21:29)
[2019-04-16] MEDS: PANTOPRAZOLE 40 MG TABLET PO SCH (08:55)
[2019-04-16] MEDS: FUROSEMIDE 40 MG TABLET PO SCH ×2 (08:55→16:12)
[2019-04-16] MEDS: MULTIVITAMIN (CENTRUM) TABLET PO SCH (08:55)
[2019-04-16] MEDS: ALLOPURINOL 300 MG TABLET PO SCH (08:55)
[2019-04-16] MEDS: ATORVASTATIN 40 MG TABLET PO SCH (21:29)
[2019-04-16] MEDS: CITALOPRAM 20 MG TABLET PO SCH (21:29)
[2019-04-16] MEDS: ACETAMINOPHEN 325 MG TABLET PO PRN (21:32)
[2019-04-17 05:38] LABS: Calcium 8.6 MG/DL (8.5-10.1); Osmolality,Calculated 289.3 MOS/KG (273-304)
[2019-04-17] MEDS: PANTOPRAZOLE 40 MG TABLET PO SCH (08:52)
[2019-04-17] MEDS: cloNIDine 0.1 MG TABLET PO SCH ×2 (08:52→21:13)
[2019-04-17] MEDS: ASPIRIN CHEW 81 MG TABLET PO SCH (08:52)
[2019-04-17] MEDS: MULTIVITAMIN (CENTRUM) TABLET PO SCH (08:52)
[2019-04-17] MEDS: ALLOPURINOL 300 MG TABLET PO SCH (08:52)
[2019-04-17] MEDS: APIXABAN 2.5 MG TABLET PO SCH ×2 (08:52→21:13)
[2019-04-17] MEDS: FUROSEMIDE 40 MG TABLET PO SCH ×2 (08:52→16:31)
[2019-04-17] MEDS: DOCUSATE SODIUM 100 MG CAPSULE PO SCH ×2 (08:52→21:14)
[2019-04-17] MEDS: CITALOPRAM 20 MG TABLET PO SCH (21:13)
[2019-04-17] MEDS: ATORVASTATIN 40 MG TABLET PO SCH (21:13)
[2019-04-18 05:11] LABS: Basophils # 0.1 10*3/uL (0.0-0.2); Basophils % 0.9 % (0.0-0.8); Eosinophils # 0.3 10*3/uL (0.0-0.87); Eosinophils % 3.3 % (0.00-10.9); Hematocrit 29.5 VOL% (35.7-47.0); Hemoglobin 9.9 GM/DL (12.0-16.0); Immature Granulocytes % 0.5 %; Immature Granulocytes Absolute 0.04 #; Lymphocytes # 2.2 10*3/uL (1.4-4.0); Lymphocytes % 26.4 % (21.3-54.2); Mean Corpuscular HGB Conc 33.6 GM/DL (32-36); Mean Corpuscular Volume 99.7 FL (87-102); Mean Platelet Volume 11.7 FL (9.6-12.0); Monocytes % 7.5 % (1.7-12.7); Neutrophils % 61.4 % (38.7-73.9); Platelet Count 159 T/CUMM (130-400); Red Blood Count 2.96 MC/CUMM (3.8-5.5); Red Cell Distribution Width 14.5 % (9.3-17.3); White Blood Count 8.2 T/CUMM (4-12)
[2019-04-18 05:42] LABS: Albumin 3.2 G/DL (3.4-5.0); Bilirubin,Total 0.6 MG/DL (0.2-1.0); Calcium 8.6 MG/DL (8.5-10.1); Osmolality,Calculated 285.5 MOS/KG (273-304); Total Protein 6.3 G/DL (6.4-8.3)
[2019-04-18] MEDS: cloNIDine 0.1 MG TABLET PO SCH ×2 (09:31→22:11)
[2019-04-18] MEDS: MULTIVITAMIN (CENTRUM) TABLET PO SCH (09:31)
[2019-04-18] MEDS: ASPIRIN CHEW 81 MG TABLET PO SCH (09:31)
[2019-04-18] MEDS: PANTOPRAZOLE 40 MG TABLET PO SCH (09:31)
[2019-04-18] MEDS: DOCUSATE SODIUM 100 MG CAPSULE PO SCH ×2 (09:31→22:11)
[2019-04-18] MEDS: APIXABAN 2.5 MG TABLET PO SCH ×2 (09:31→22:11)
[2019-04-18] MEDS: FUROSEMIDE 40 MG TABLET PO SCH ×2 (09:31→16:31)
[2019-04-18] MEDS: ALLOPURINOL 300 MG TABLET PO SCH (09:31)
[2019-04-18] MEDS ORDERED: METOPROLOL TARTRATE 5 MG/5 ML VIAL IV PRN (20:56)
[2019-04-18] MEDS ORDERED: METOPROLOL TARTRATE 5 MG/5 ML VIAL IV SCH (21:00)
[2019-04-18] MEDS: CITALOPRAM 20 MG TABLET PO SCH (22:10)
[2019-04-18] MEDS: COLCHICINE 0.6 MG CAPSULE PO SCH (22:10)
[2019-04-18] MEDS: ATORVASTATIN 40 MG TABLET PO SCH (22:11)
[2019-04-18] MEDS: ACETAMINOPHEN 325 MG TABLET PO PRN (22:57)
[2019-04-19] MEDS: MULTIVITAMIN (CENTRUM) TABLET PO SCH (09:43)
[2019-04-19] MEDS: DOCUSATE SODIUM 100 MG CAPSULE PO SCH ×2 (09:43→21:09)
[2019-04-19] MEDS: FUROSEMIDE 40 MG TABLET PO SCH ×2 (09:43→16:40)
[2019-04-19] MEDS: ASPIRIN CHEW 81 MG TABLET PO SCH (09:43)
[2019-04-19] MEDS: ALLOPURINOL 300 MG TABLET PO SCH (09:43)
[2019-04-19] MEDS: METOPROLOL TARTRATE 50 MG TABLET PO SCH ×2 (09:44→21:10)
[2019-04-19] MEDS: predniSONE 10 MG TABLET PO SCH (09:44)
[2019-04-19] MEDS: APIXABAN 5 MG TABLET PO SCH ×2 (09:44→21:10)
[2019-04-19] MEDS: PANTOPRAZOLE 40 MG TABLET PO SCH (09:44)
[2019-04-19] MEDS: COLCHICINE 0.6 MG CAPSULE PO SCH ×2 (09:48→21:09)
[2019-04-19] MEDS: ATORVASTATIN 40 MG TABLET PO SCH (21:09)
[2019-04-19] MEDS: CITALOPRAM 20 MG TABLET PO SCH (21:10)
[2019-04-20] MEDS: FUROSEMIDE 40 MG TABLET PO SCH ×2 (10:07→16:15)
[2019-04-20] MEDS: ALLOPURINOL 300 MG TABLET PO SCH (10:07)
[2019-04-20] MEDS: APIXABAN 5 MG TABLET PO SCH (10:07)
[2019-04-20] MEDS: MULTIVITAMIN (CENTRUM) TABLET PO SCH (10:07)
[2019-04-20] MEDS: predniSONE 10 MG TABLET PO SCH (10:07)
[2019-04-20] MEDS: COLCHICINE 0.6 MG CAPSULE PO SCH (10:07)
[2019-04-20] MEDS: ASPIRIN CHEW 81 MG TABLET PO SCH (10:07)
[2019-04-20] MEDS: PANTOPRAZOLE 40 MG TABLET PO SCH (10:08)
[2019-04-20] MEDS: METOPROLOL TARTRATE 50 MG TABLET PO SCH (10:08)
[2019-04-20] MEDS: DOCUSATE SODIUM 100 MG CAPSULE PO SCH (10:08)
[2019-04-20 16:05] VITALS: BP 158/80
== END 2019-04-20 18:12 | disposition home or self-care (01) | DRG 683 ==
LOC: N.ED 15:10 → N.EDINP 17:18 → N.CC 17:40 → N.TELES 04-15 17:55
PROVIDERS: ADMIT Family Medicine; ATTEND Family Medicine

== ENCOUNTER 2019-05-17 08:22 | Inpatient (IN) ==
[2019-05-17] MEDS ORDERED: ACETAMINOPHEN 500 MG TABLET ONE (08:39)
[2019-05-17] MEDS ORDERED: ACETAMINOPHEN 500 MG TABLET PO STA (08:40)
[2019-05-17] MEDS ORDERED: ONDANSETRON 4 MG/2 ML VIAL IV PRN (11:59)
[2019-05-17] MEDS ORDERED: ACETAMINOPHEN 325 MG/10.15 ML UDCUP PO PRN (11:59)
[2019-05-17] MEDS ORDERED: cephALEXin 500 MG CAPSULE PO SCH (13:30)
[2019-05-17] MEDS: cefTRIAXone 1,000 MG in SYRINGE 1 EACH IV SCH (14:48)
[2019-05-17] MEDS: SODIUM CHLORIDE 0.9% 1,000 ML IV SCH ×2 (14:48→21:14)
[2019-05-17] MEDS: MECLIZINE 25 MG TABLET PO SCH ×2 (15:21→21:13)
[2019-05-17] MEDS: ACETAMINOPHEN 325 MG TABLET PO PRN (18:43)
[2019-05-17] MEDS ORDERED: ALBUTEROL/IPRATROPIUM 3 ML NEB RESP TX PRN (19:03)
[2019-05-17 19:46] LABS: Basophils # 0.1 10*3/uL (0.0-0.2); Basophils % 0.5 % (0.0-0.8); Eosinophils % 0.3 % (0.00-10.9); Hematocrit 33.5 VOL% (35.7-47.0); Hemoglobin 10.6 GM/DL (12.0-16.0); Immature Granulocytes % 0.6 %; Immature Granulocytes Absolute 0.07 #; Lymphocytes # 1.4 10*3/uL (1.4-4.0); Lymphocytes % 12.8 % (21.3-54.2); Mean Corpuscular HGB Conc 31.6 GM/DL (32-36); Mean Corpuscular Volume 102.8 FL (87-102); Mean Platelet Volume 10.7 FL (9.6-12.0); Monocytes % 6.5 % (1.7-12.7); NRBC # 0.02 10*3/uL; Neutrophils % 79.3 % (38.7-73.9); Platelet Count 166 T/CUMM (130-400); Red Blood Count 3.26 MC/CUMM (3.8-5.5); Red Cell Distribution Width 14.9 % (9.3-17.3); White Blood Count 11.2 T/CUMM (4-12)
[2019-05-17] MEDS: FUROSEMIDE 40 MG TABLET PO SCH (21:13)
[2019-05-17] MEDS: METOPROLOL TARTRATE 50 MG TABLET PO SCH (21:13)
[2019-05-17] MEDS: DOCUSATE SODIUM 100 MG CAPSULE PO SCH (21:13)
[2019-05-17] MEDS: ATORVASTATIN 40 MG TABLET PO SCH (21:13)
[2019-05-17] MEDS: APIXABAN 5 MG TABLET PO SCH (21:13)
[2019-05-17] MEDS: cloNIDine 0.1 MG TABLET PO SCH (21:28)
[2019-05-17] MEDS: CITALOPRAM 20 MG TABLET PO SCH (21:28)
[2019-05-18] MEDS: SODIUM CHLORIDE 0.9% 1,000 ML IV SCH ×2 (04:15→13:32)
[2019-05-18] MEDS: MULTIVITAMIN (CENTRUM) TABLET PO SCH (09:09)
[2019-05-18] MEDS: allopurinoL 300 MG TABLET PO SCH (09:09)
[2019-05-18] MEDS: MECLIZINE 25 MG TABLET PO SCH ×3 (09:09→21:31)
[2019-05-18] MEDS: ASPIRIN CHEW 81 MG TABLET PO SCH (09:10)
[2019-05-18] MEDS: PANTOPRAZOLE 40 MG TABLET PO SCH (09:10)
[2019-05-18] MEDS: DOCUSATE SODIUM 100 MG CAPSULE PO SCH ×2 (09:10→21:32)
[2019-05-18] MEDS: FUROSEMIDE 40 MG TABLET PO SCH ×2 (09:10→21:32)
[2019-05-18] MEDS: APIXABAN 5 MG TABLET PO SCH ×2 (09:10→21:32)
[2019-05-18] MEDS: METOPROLOL TARTRATE 50 MG TABLET PO SCH ×2 (09:10→21:31)
[2019-05-18] MEDS ORDERED: LOPERAMIDE 2 MG CAPSULE PO PRN (13:20)
[2019-05-18] MEDS: cefTRIAXone 1,000 MG in SYRINGE 1 EACH IV SCH (13:32)
[2019-05-18] MEDS ORDERED: LOPERAMIDE 2 MG CAPSULE PO ONE (14:00)
[2019-05-18] MEDS: methylPREDNISolone SOD SUC 40 MG/1 ML VIAL IM SCH (19:54)
[2019-05-18] MEDS: ALBUTEROL/IPRATROPIUM 3 ML NEB RESP TX SCH (20:00)
[2019-05-18] MEDS: ACETAMINOPHEN 325 MG TABLET PO PRN (21:31)
[2019-05-18] MEDS: CITALOPRAM 20 MG TABLET PO SCH (21:31)
[2019-05-18] MEDS: cloNIDine 0.1 MG TABLET PO SCH (21:31)
[2019-05-18] MEDS: POTASSIUM CHLORIDE INJ 10 MEQ in SODIUM CHLORIDE 0.9% 1,000 ML IV SCH (21:31)
[2019-05-18] MEDS: ATORVASTATIN 40 MG TABLET PO SCH (21:32)
[2019-05-19] MEDS: ALBUTEROL/IPRATROPIUM 3 ML NEB RESP TX SCH ×4 (01:41→19:05)
[2019-05-19] MEDS: methylPREDNISolone SOD SUC 40 MG/1 ML VIAL IM SCH (03:01)
[2019-05-19 05:37] LABS: Basophils % 0.1 % (0.0-0.8); Hematocrit 31.4 VOL% (35.7-47.0); Hemoglobin 9.9 GM/DL (12.0-16.0); Immature Granulocytes % 0.9 %; Immature Granulocytes Absolute 0.06 #; Lymphocytes # 0.8 10*3/uL (1.4-4.0); Lymphocytes % 11.7 % (21.3-54.2); Mean Corpuscular HGB Conc 31.5 GM/DL (32-36); Mean Corpuscular Volume 102.3 FL (87-102); Monocytes % 1.2 % (1.7-12.7); Neutrophils % 86.1 % (38.7-73.9); Platelet Count 130 T/CUMM (130-400); Red Blood Count 3.07 MC/CUMM (3.8-5.5); Red Cell Distribution Width 14.5 % (9.3-17.3); White Blood Count 6.7 T/CUMM (4-12)
[2019-05-19 05:37] LABS: Apearance,Urine CLEAR (Clear); Bilirubin,Urine Negative (Negative); Blood, Urine Negative (Negative); Glucose,Urine (UA) Negative (Negative); Ketones,Urine Negative (Negative); Nitrite,Urine Negative (Negative); Protein,Urine Negative; RBC,Urine 1 /HPF (0-4); Squamous Epithelial Cell,Urine Occasional /HPF (0-10); Urine Color Yellow (Yellow); Urine Specific Gravity 1.008 (1.001-1.035); Urine Urobilinogen < 2.0 EU/DL (0.2-1.0); WBC,Urine 2 /HPF (0-6)
[2019-05-19] MEDS: POTASSIUM CHLORIDE INJ 10 MEQ in SODIUM CHLORIDE 0.9% 1,000 ML IV SCH ×2 (06:09→16:55)
[2019-05-19 06:12] LABS: Albumin 2.8 G/DL (3.4-5.0); Bilirubin,Total 1.1 MG/DL (0.2-1.0); Calcium 8.2 MG/DL (8.5-10.1); Risk Ratio 5.16; Thyroid Stimulating Hormone 0.369 uIU/ml (0.358-3.74); Total Protein 6.5 G/DL (6.4-8.3); VLDL CHOLESTEROL 16.8 MG/DL
[2019-05-19] MEDS: APIXABAN 5 MG TABLET PO SCH ×2 (09:06→21:14)
[2019-05-19] MEDS: allopurinoL 300 MG TABLET PO SCH (09:06)
[2019-05-19] MEDS: FUROSEMIDE 40 MG TABLET PO SCH ×2 (09:06→21:13)
[2019-05-19] MEDS: MECLIZINE 25 MG TABLET PO SCH ×3 (09:06→21:13)
[2019-05-19] MEDS: METOPROLOL TARTRATE 50 MG TABLET PO SCH ×2 (09:06→21:13)
[2019-05-19] MEDS: DOCUSATE SODIUM 100 MG CAPSULE PO SCH ×2 (09:06→21:14)
[2019-05-19] MEDS: PANTOPRAZOLE 40 MG TABLET PO SCH (09:06)
[2019-05-19] MEDS: MULTIVITAMIN (CENTRUM) TABLET PO SCH (09:06)
[2019-05-19] MEDS: ASPIRIN CHEW 81 MG TABLET PO SCH (09:06)
[2019-05-19] MEDS ORDERED: methylPREDNISolone SOD SUC 40 MG/1 ML VIAL IV SCH (11:00)
[2019-05-19] MEDS: cefTRIAXone 1,000 MG in SYRINGE 1 EACH IV SCH (12:53)
[2019-05-19] MEDS: cloNIDine 0.1 MG TABLET PO SCH (21:13)
[2019-05-19] MEDS: CITALOPRAM 20 MG TABLET PO SCH (21:13)
[2019-05-19] MEDS: ATORVASTATIN 40 MG TABLET PO SCH (21:14)
[2019-05-20] MEDS: ALBUTEROL/IPRATROPIUM 3 ML NEB RESP TX SCH ×4 (00:26→20:09)
[2019-05-20] MEDS: POTASSIUM CHLORIDE INJ 10 MEQ in SODIUM CHLORIDE 0.9% 1,000 ML IV SCH ×2 (03:02→15:59)
[2019-05-20 05:29] LABS: Hematocrit 30.4 VOL% (35.7-47.0); Hemoglobin 9.6 GM/DL (12.0-16.0); Immature Granulocytes % 0.9 %; Immature Granulocytes Absolute 0.09 #; Lymphocytes % 9.9 % (21.3-54.2); Mean Corpuscular HGB Conc 31.6 GM/DL (32-36); Mean Corpuscular Volume 102.7 FL (87-102); Mean Platelet Volume 11.6 FL (9.6-12.0); Monocytes % 5.2 % (1.7-12.7); Platelet Count 139 T/CUMM (130-400); Red Blood Count 2.96 MC/CUMM (3.8-5.5); Red Cell Distribution Width 14.3 % (9.3-17.3); White Blood Count 9.7 T/CUMM (4-12)
[2019-05-20 06:09] LABS: Albumin 2.8 G/DL (3.4-5.0); Bilirubin,Total 0.7 MG/DL (0.2-1.0); Calcium 8.4 MG/DL (8.5-10.1); Osmolality,Calculated 299.6 MOS/KG (273-304); Total Protein 6.1 G/DL (6.4-8.3)
[2019-05-20] MEDS ORDERED: BENZONATATE 100 MG CAPSULE PO PRN (07:23)
[2019-05-20] MEDS: AZITHROMYCIN 250 MG TABLET PO SCH (09:08)
[2019-05-20] MEDS: allopurinoL 300 MG TABLET PO SCH (09:08)
[2019-05-20] MEDS: MULTIVITAMIN (CENTRUM) TABLET PO SCH (09:08)
[2019-05-20] MEDS: MECLIZINE 25 MG TABLET PO SCH ×3 (09:08→20:05)
[2019-05-20] MEDS: METOPROLOL TARTRATE 50 MG TABLET PO SCH ×2 (09:08→20:05)
[2019-05-20] MEDS: FUROSEMIDE 40 MG TABLET PO SCH ×2 (09:09→20:05)
[2019-05-20] MEDS: DOCUSATE SODIUM 100 MG CAPSULE PO SCH ×2 (09:09→20:05)
[2019-05-20] MEDS: ASPIRIN CHEW 81 MG TABLET PO SCH (09:09)
[2019-05-20] MEDS: PANTOPRAZOLE 40 MG TABLET PO SCH (09:09)
[2019-05-20] MEDS: methylPREDNISolone SOD SUC 125 MG/2 ML VIAL IV SCH ×2 (09:09→20:06)
[2019-05-20] MEDS: BENZONATATE 100 MG CAPSULE PO SCH ×3 (09:09→20:06)
[2019-05-20] MEDS: APIXABAN 5 MG TABLET PO SCH ×2 (09:13→20:05)
[2019-05-20] MEDS: cefTRIAXone 1,000 MG in SYRINGE 1 EACH IV SCH (14:26)
[2019-05-20 18:08] LABS: ABG Base Excess -0.2 MMOL/L (-2.5-2.5); ABG HCO3 24.2 MMOL/L (20-26); ABG Oxygen Saturation 98.1 % (95-100); ABG PCO2 38.4 MM HG (35-48); ABG PH 7.408 (7.35-7.45); ABG PO2 97.5 MM HG (80-95); ABG TCO2 21.9 MMOL/L (23-27)
[2019-05-20] MEDS: CITALOPRAM 20 MG TABLET PO SCH (20:05)
[2019-05-20] MEDS: ATORVASTATIN 40 MG TABLET PO SCH (20:06)
[2019-05-20] MEDS: cloNIDine 0.1 MG TABLET PO SCH (20:06)
[2019-05-21] MEDS: ALBUTEROL/IPRATROPIUM 3 ML NEB RESP TX SCH ×4 (01:30→19:47)
[2019-05-21] MEDS: POTASSIUM CHLORIDE INJ 10 MEQ in SODIUM CHLORIDE 0.9% 1,000 ML IV SCH (05:58)
[2019-05-21] MEDS: MULTIVITAMIN (CENTRUM) TABLET PO SCH (09:33)
[2019-05-21] MEDS: APIXABAN 5 MG TABLET PO SCH ×2 (09:34→20:00)
[2019-05-21] MEDS: AZITHROMYCIN 250 MG TABLET PO SCH (09:34)
[2019-05-21] MEDS: DOCUSATE SODIUM 100 MG CAPSULE PO SCH ×2 (09:34→20:00)
[2019-05-21] MEDS: predniSONE 20 MG TABLET PO SCH (09:34)
[2019-05-21] MEDS: ASPIRIN CHEW 81 MG TABLET PO SCH (09:34)
[2019-05-21] MEDS: BENZONATATE 100 MG CAPSULE PO SCH ×3 (09:34→20:00)
[2019-05-21] MEDS: allopurinoL 300 MG TABLET PO SCH (09:34)
[2019-05-21] MEDS: FUROSEMIDE 40 MG TABLET PO SCH ×2 (09:34→20:00)
[2019-05-21] MEDS: PANTOPRAZOLE 40 MG TABLET PO SCH (09:34)
[2019-05-21] MEDS: METOPROLOL TARTRATE 50 MG TABLET PO SCH ×2 (09:34→20:00)
[2019-05-21] MEDS: MECLIZINE 25 MG TABLET PO SCH ×3 (09:34→20:00)
[2019-05-21] MEDS: methylPREDNISolone SOD SUC 125 MG/2 ML VIAL IV SCH (09:45)
[2019-05-21 10:24] LABS: Basophils % 0.1 % (0.0-0.8); Hematocrit 34.7 VOL% (35.7-47.0); Hemoglobin 11.1 GM/DL (12.0-16.0); Immature Granulocytes % 2.1 %; Immature Granulocytes Absolute 0.21 #; Lymphocytes # 1.2 10*3/uL (1.4-4.0); Lymphocytes % 12.1 % (21.3-54.2); Mean Corpuscular Volume 102.7 FL (87-102); Mean Platelet Volume 11.1 FL (9.6-12.0); Monocytes % 3.5 % (1.7-12.7); NRBC # 0.02 10*3/uL; Neutrophils % 82.2 % (38.7-73.9); Platelet Count 186 T/CUMM (130-400); Red Blood Count 3.38 MC/CUMM (3.8-5.5); Red Cell Distribution Width 14.4 % (9.3-17.3)
[2019-05-21 10:49] LABS: Osmolality,Calculated 300.7 MOS/KG (273-304)
[2019-05-21] MEDS: cefTRIAXone 1,000 MG in SYRINGE 1 EACH IV SCH (14:26)
[2019-05-21] MEDS: BUDESONIDE 0.5 MG/2 ML NEB RESP TX SCH (19:47)
[2019-05-21] MEDS: DORNASE ALFA 2.5 MG/2.5 ML VIAL RESP TX SCH (19:47)
[2019-05-21] MEDS: cloNIDine 0.1 MG TABLET PO SCH (20:00)
[2019-05-21] MEDS: CITALOPRAM 20 MG TABLET PO SCH (20:00)
[2019-05-21] MEDS: ATORVASTATIN 40 MG TABLET PO SCH (20:00)
[2019-05-22] MEDS: ALBUTEROL/IPRATROPIUM 3 ML NEB RESP TX SCH ×4 (01:32→19:23)
[2019-05-22] MEDS: POTASSIUM CHLORIDE INJ 10 MEQ in SODIUM CHLORIDE 0.9% 1,000 ML IV SCH ×2 (02:03→22:30)
[2019-05-22 05:43] LABS: Basophils % 0.1 % (0.0-0.8); Hematocrit 30.1 VOL% (35.7-47.0); Hemoglobin 9.6 GM/DL (12.0-16.0); Immature Granulocytes % 1.9 %; Immature Granulocytes Absolute 0.17 #; Lymphocytes # 1.7 10*3/uL (1.4-4.0); Lymphocytes % 18.4 % (21.3-54.2); Mean Corpuscular HGB Conc 31.9 GM/DL (32-36); Mean Corpuscular Volume 101.3 FL (87-102); Mean Platelet Volume 11.2 FL (9.6-12.0); Monocytes % 7.5 % (1.7-12.7); NRBC # 0.02 10*3/uL; Neutrophils % 72.1 % (38.7-73.9); Platelet Count 157 T/CUMM (130-400); Red Blood Count 2.97 MC/CUMM (3.8-5.5); Red Cell Distribution Width 14.6 % (9.3-17.3); White Blood Count 9.2 T/CUMM (4-12)
[2019-05-22 05:59] LABS: Calcium 8.2 MG/DL (8.5-10.1); Osmolality,Calculated 299.7 MOS/KG (273-304)
[2019-05-22] MEDS: BUDESONIDE 0.5 MG/2 ML NEB RESP TX SCH ×2 (08:02→19:23)
[2019-05-22] MEDS: DORNASE ALFA 2.5 MG/2.5 ML VIAL RESP TX SCH ×2 (08:10→19:23)
[2019-05-22] MEDS: predniSONE 20 MG TABLET PO SCH (09:34)
[2019-05-22] MEDS: METOPROLOL TARTRATE 50 MG TABLET PO SCH ×2 (09:34→22:31)
[2019-05-22] MEDS: ASPIRIN CHEW 81 MG TABLET PO SCH (09:35)
[2019-05-22] MEDS: PANTOPRAZOLE 40 MG TABLET PO SCH (09:35)
[2019-05-22] MEDS: DOCUSATE SODIUM 100 MG CAPSULE PO SCH ×2 (09:35→22:32)
[2019-05-22] MEDS: APIXABAN 5 MG TABLET PO SCH ×2 (09:35→22:31)
[2019-05-22] MEDS: AZITHROMYCIN 250 MG TABLET PO SCH (09:35)
[2019-05-22] MEDS: MULTIVITAMIN (CENTRUM) TABLET PO SCH (09:35)
[2019-05-22] MEDS: MECLIZINE 25 MG TABLET PO SCH ×3 (09:35→22:31)
[2019-05-22] MEDS: BENZONATATE 100 MG CAPSULE PO SCH ×3 (09:35→22:31)
[2019-05-22] MEDS: allopurinoL 300 MG TABLET PO SCH (09:35)
[2019-05-22] MEDS: FUROSEMIDE 40 MG TABLET PO SCH ×2 (09:35→22:31)
[2019-05-22] MEDS: cefTRIAXone 1,000 MG in SYRINGE 1 EACH IV SCH (12:45)
[2019-05-22] MEDS: methylPREDNISolone SOD SUC 40 MG/1 ML VIAL IV SCH ×2 (17:05→22:32)
[2019-05-22] MEDS: ATORVASTATIN 40 MG TABLET PO SCH (22:31)
[2019-05-22] MEDS: CITALOPRAM 20 MG TABLET PO SCH (22:31)
[2019-05-22] MEDS: cloNIDine 0.1 MG TABLET PO SCH (22:31)
[2019-05-23] MEDS: ALBUTEROL/IPRATROPIUM 3 ML NEB RESP TX SCH ×4 (00:22→19:00)
[2019-05-23 04:47] LABS: Basophils % 0.1 % (0.0-0.8); Hematocrit 30.1 VOL% (35.7-47.0); Hemoglobin 9.8 GM/DL (12.0-16.0); Immature Granulocytes % 4.8 %; Immature Granulocytes Absolute 0.44 #; Lymphocytes # 1.2 10*3/uL (1.4-4.0); Lymphocytes % 12.8 % (21.3-54.2); Mean Corpuscular HGB Conc 32.6 GM/DL (32-36); Mean Corpuscular Volume 100.7 FL (87-102); Mean Platelet Volume 10.9 FL (9.6-12.0); Monocytes % 3.9 % (1.7-12.7); NRBC # 0.02 10*3/uL; Neutrophils % 78.4 % (38.7-73.9); Platelet Count 176 T/CUMM (130-400); Red Blood Count 2.99 MC/CUMM (3.8-5.5); Red Cell Distribution Width 14.5 % (9.3-17.3); White Blood Count 9.2 T/CUMM (4-12)
[2019-05-23] MEDS: methylPREDNISolone SOD SUC 40 MG/1 ML VIAL IV SCH ×4 (04:57→21:15)
[2019-05-23 05:11] LABS: Calcium 8.3 MG/DL (8.5-10.1); Osmolality,Calculated 300.6 MOS/KG (273-304)
[2019-05-23] MEDS ORDERED: DEXTROSE 50% 25 GM/50 ML VIAL IV PRN (07:09)
[2019-05-23] MEDS ORDERED: GLUCAGON 1 MG VIAL IM PRN (07:09)
[2019-05-23] MEDS: BUDESONIDE 0.5 MG/2 ML NEB RESP TX SCH ×2 (08:10→19:00)
[2019-05-23] MEDS: DORNASE ALFA 2.5 MG/2.5 ML VIAL RESP TX SCH ×2 (08:20→19:07)
[2019-05-23] MEDS: MECLIZINE 25 MG TABLET PO SCH ×3 (10:32→21:14)
[2019-05-23] MEDS: BENZONATATE 100 MG CAPSULE PO SCH ×3 (10:32→21:14)
[2019-05-23] MEDS: APIXABAN 5 MG TABLET PO SCH ×2 (10:32→21:14)
[2019-05-23] MEDS: MULTIVITAMIN (CENTRUM) TABLET PO SCH (10:33)
[2019-05-23] MEDS: PANTOPRAZOLE 40 MG TABLET PO SCH (10:33)
[2019-05-23] MEDS: METOPROLOL TARTRATE 50 MG TABLET PO SCH ×2 (10:33→21:14)
[2019-05-23] MEDS: FUROSEMIDE 40 MG TABLET PO SCH ×2 (10:33→21:14)
[2019-05-23] MEDS: allopurinoL 300 MG TABLET PO SCH (10:33)
[2019-05-23] MEDS: ASPIRIN CHEW 81 MG TABLET PO SCH (10:33)
[2019-05-23] MEDS: INSULIN REGULAR 100 UNIT/ML SUBCUT SCH ×4 (10:37→21:13)
[2019-05-23] MEDS: DOCUSATE SODIUM 100 MG CAPSULE PO SCH ×2 (10:37→21:14)
[2019-05-23] MEDS: AZITHROMYCIN INJ 250 MG in SODIUM CHLORIDE 0.9% 150 ML IV SCH (10:37)
[2019-05-23] MEDS: cefTRIAXone 1,000 MG in SYRINGE 1 EACH IV SCH (14:53)
[2019-05-23] MEDS: POTASSIUM CHLORIDE INJ 10 MEQ in SODIUM CHLORIDE 0.9% 1,000 ML IV SCH (21:13)
[2019-05-23] MEDS: CITALOPRAM 20 MG TABLET PO SCH (21:14)
[2019-05-23] MEDS: ATORVASTATIN 40 MG TABLET PO SCH (21:14)
[2019-05-23] MEDS: cloNIDine 0.1 MG TABLET PO SCH (21:14)
[2019-05-24] MEDS: ALBUTEROL/IPRATROPIUM 3 ML NEB RESP TX SCH ×4 (00:34→20:20)
[2019-05-24] MEDS: methylPREDNISolone SOD SUC 40 MG/1 ML VIAL IV SCH ×4 (05:18→21:17)
[2019-05-24 05:55] LABS: Basophils % 0.2 % (0.0-0.8); Hematocrit 32.1 VOL% (35.7-47.0); Hemoglobin 10.3 GM/DL (12.0-16.0); Immature Granulocytes % 4.9 %; Immature Granulocytes Absolute 0.59 #; Lymphocytes # 1.3 10*3/uL (1.4-4.0); Lymphocytes % 10.6 % (21.3-54.2); Mean Corpuscular HGB Conc 32.1 GM/DL (32-36); Mean Corpuscular Volume 100.6 FL (87-102); Monocytes % 3.6 % (1.7-12.7); NRBC # 0.04 10*3/uL; Neutrophils % 80.7 % (38.7-73.9); Platelet Count 196 T/CUMM (130-400); Red Blood Count 3.19 MC/CUMM (3.8-5.5); Red Cell Distribution Width 14.4 % (9.3-17.3); White Blood Count 12.1 T/CUMM (4-12)
[2019-05-24 06:30] LABS: Lymphocytes 14 % (20-55); Segmented Neutrophils 84 % (50-85); Total Cells Counted 100
[2019-05-24 06:31] LABS: Platelet Estimate Decreased; Polychromasia Few
[2019-05-24 06:32] LABS: Calcium 8.6 MG/DL (8.5-10.1); Osmolality,Calculated 294.8 MOS/KG (273-304)
[2019-05-24] MEDS: BUDESONIDE 0.5 MG/2 ML NEB RESP TX SCH ×2 (07:50→20:20)
[2019-05-24] MEDS: DORNASE ALFA 2.5 MG/2.5 ML VIAL RESP TX SCH ×2 (07:50→20:30)
[2019-05-24] MEDS: AZITHROMYCIN INJ 250 MG in SODIUM CHLORIDE 0.9% 150 ML IV SCH (09:04)
[2019-05-24] MEDS: BENZONATATE 100 MG CAPSULE PO SCH ×3 (09:05→20:37)
[2019-05-24] MEDS: MECLIZINE 25 MG TABLET PO SCH ×3 (09:06→20:36)
[2019-05-24] MEDS: FUROSEMIDE 40 MG TABLET PO SCH ×2 (09:06→20:36)
[2019-05-24] MEDS: APIXABAN 5 MG TABLET PO SCH ×2 (09:06→20:36)
[2019-05-24] MEDS: allopurinoL 300 MG TABLET PO SCH (09:06)
[2019-05-24] MEDS: PANTOPRAZOLE 40 MG TABLET PO SCH (09:06)
[2019-05-24] MEDS: DOCUSATE SODIUM 100 MG CAPSULE PO SCH ×2 (09:07→20:36)
[2019-05-24] MEDS: ASPIRIN CHEW 81 MG TABLET PO SCH (09:07)
[2019-05-24] MEDS: METOPROLOL TARTRATE 50 MG TABLET PO SCH ×2 (09:07→20:37)
[2019-05-24] MEDS: INSULIN REGULAR 100 UNIT/ML SUBCUT SCH ×4 (09:08→20:37)
[2019-05-24] MEDS: MULTIVITAMIN (CENTRUM) TABLET PO SCH (09:09)
[2019-05-24] MEDS ORDERED: cefTRIAXone 500 MG in SYRINGE 1 EACH IV SCH (14:00)
[2019-05-24] MEDS: POTASSIUM CHLORIDE INJ 10 MEQ in SODIUM CHLORIDE 0.9% 1,000 ML IV SCH (14:39)
[2019-05-24] MEDS: CITALOPRAM 20 MG TABLET PO SCH (20:36)
[2019-05-24] MEDS: ACETAMINOPHEN 325 MG TABLET PO PRN (20:37)
[2019-05-24] MEDS: cloNIDine 0.1 MG TABLET PO SCH (20:37)
[2019-05-24] MEDS: ATORVASTATIN 40 MG TABLET PO SCH (20:37)
[2019-05-25] MEDS: ALBUTEROL/IPRATROPIUM 3 ML NEB RESP TX SCH ×4 (01:43→20:27)
[2019-05-25] MEDS: methylPREDNISolone SOD SUC 40 MG/1 ML VIAL IV SCH ×3 (03:56→17:08)
[2019-05-25] MEDS: BUDESONIDE 0.5 MG/2 ML NEB RESP TX SCH ×2 (08:26→20:28)
[2019-05-25] MEDS: DORNASE ALFA 2.5 MG/2.5 ML VIAL RESP TX SCH ×2 (08:29→20:27)
[2019-05-25] MEDS: DOCUSATE SODIUM 100 MG CAPSULE PO SCH ×2 (09:38→20:26)
[2019-05-25] MEDS: PANTOPRAZOLE 40 MG TABLET PO SCH (09:39)
[2019-05-25] MEDS: ASPIRIN CHEW 81 MG TABLET PO SCH (09:39)
[2019-05-25] MEDS: APIXABAN 5 MG TABLET PO SCH ×2 (09:39→20:26)
[2019-05-25] MEDS: allopurinoL 300 MG TABLET PO SCH (09:39)
[2019-05-25] MEDS: BENZONATATE 100 MG CAPSULE PO SCH ×3 (09:39→20:26)
[2019-05-25] MEDS: METOPROLOL TARTRATE 50 MG TABLET PO SCH ×2 (09:39→20:26)
[2019-05-25] MEDS: MECLIZINE 25 MG TABLET PO SCH ×3 (09:39→20:26)
[2019-05-25] MEDS: FUROSEMIDE 40 MG TABLET PO SCH ×2 (09:39→20:26)
[2019-05-25] MEDS: MULTIVITAMIN (CENTRUM) TABLET PO SCH (09:39)
[2019-05-25] MEDS: INSULIN REGULAR 100 UNIT/ML SUBCUT SCH ×4 (09:40→20:25)
[2019-05-25] MEDS: AZITHROMYCIN INJ 250 MG in SODIUM CHLORIDE 0.9% 150 ML IV SCH (09:45)
[2019-05-25] MEDS: ATORVASTATIN 40 MG TABLET PO SCH (20:26)
[2019-05-25] MEDS: cloNIDine 0.1 MG TABLET PO SCH (20:26)
[2019-05-25] MEDS: CITALOPRAM 20 MG TABLET PO SCH (20:26)
[2019-05-25] MEDS: ACETAMINOPHEN 325 MG TABLET PO PRN (20:32)
[2019-05-26] MEDS: ALBUTEROL/IPRATROPIUM 3 ML NEB RESP TX SCH ×4 (00:47→19:33)
[2019-05-26] MEDS: methylPREDNISolone SOD SUC 40 MG/1 ML VIAL IV SCH ×3 (01:49→21:00)
[2019-05-26 05:15] LABS: Basophils % 0.2 % (0.0-0.8); Hematocrit 34.2 VOL% (35.7-47.0); Hemoglobin 10.9 GM/DL (12.0-16.0); Immature Granulocytes % 6.3 %; Immature Granulocytes Absolute 0.82 #; Lymphocytes # 1.1 10*3/uL (1.4-4.0); Lymphocytes % 8.4 % (21.3-54.2); Mean Corpuscular HGB Conc 31.9 GM/DL (32-36); Mean Corpuscular Volume 101.5 FL (87-102); Monocytes % 4.6 % (1.7-12.7); NRBC # 0.03 10*3/uL; Neutrophils % 80.5 % (38.7-73.9); Platelet Count 199 T/CUMM (130-400); Red Blood Count 3.37 MC/CUMM (3.8-5.5); Red Cell Distribution Width 14.7 % (9.3-17.3); White Blood Count 13.1 T/CUMM (4-12)
[2019-05-26 05:35] LABS: Lymphocytes 9 % (20-55); Metamyelocytes 3 %; Nucleated Red Blood Cells 1 (0-5); Segmented Neutrophils 83 % (50-85); Total Cells Counted 100
[2019-05-26 05:36] LABS: Hypochromasia 1+; Ovalocytes 1+; Platelet Estimate Normal; Polychromasia Few; Tear Drop Cells Few
[2019-05-26] MEDS: INSULIN REGULAR 100 UNIT/ML SUBCUT SCH ×4 (07:45→21:00)
[2019-05-26] MEDS: BUDESONIDE 0.5 MG/2 ML NEB RESP TX SCH ×2 (07:50→19:33)
[2019-05-26] MEDS: DORNASE ALFA 2.5 MG/2.5 ML VIAL RESP TX SCH ×2 (08:50→19:33)
[2019-05-26] MEDS: BENZONATATE 100 MG CAPSULE PO SCH ×3 (09:29→21:00)
[2019-05-26] MEDS: PANTOPRAZOLE 40 MG TABLET PO SCH (09:29)
[2019-05-26] MEDS: DOCUSATE SODIUM 100 MG CAPSULE PO SCH ×2 (09:29→20:59)
[2019-05-26] MEDS: ACETAMINOPHEN 325 MG TABLET PO PRN (09:29)
[2019-05-26] MEDS: MECLIZINE 25 MG TABLET PO SCH ×3 (09:29→20:59)
[2019-05-26] MEDS: ASPIRIN CHEW 81 MG TABLET PO SCH (09:29)
[2019-05-26] MEDS: APIXABAN 5 MG TABLET PO SCH ×2 (09:30→21:00)
[2019-05-26] MEDS: METOPROLOL TARTRATE 50 MG TABLET PO SCH ×2 (09:31→21:00)
[2019-05-26] MEDS: allopurinoL 300 MG TABLET PO SCH (09:31)
[2019-05-26] MEDS: MULTIVITAMIN (CENTRUM) TABLET PO SCH (09:31)
[2019-05-26] MEDS: FUROSEMIDE 40 MG TABLET PO SCH ×2 (09:31→20:59)
[2019-05-26] MEDS: AZITHROMYCIN INJ 250 MG in SODIUM CHLORIDE 0.9% 150 ML IV SCH (09:38)
[2019-05-26] MEDS ORDERED: FUROSEMIDE 40 MG/4 ML VIAL IV ONE (16:06)
[2019-05-26] MEDS: cloNIDine 0.1 MG TABLET PO SCH (20:59)
[2019-05-26] MEDS: ATORVASTATIN 40 MG TABLET PO SCH (20:59)
[2019-05-26] MEDS: CITALOPRAM 20 MG TABLET PO SCH (20:59)
[2019-05-27] MEDS: ALBUTEROL/IPRATROPIUM 3 ML NEB RESP TX SCH ×3 (00:21→15:35)
[2019-05-27] MEDS ORDERED: hydrALAZINE 20 MG/1 ML VIAL IV PRN (06:22)
[2019-05-27] MEDS: INSULIN REGULAR 100 UNIT/ML SUBCUT SCH ×2 (07:45→11:59)
[2019-05-27] MEDS: BUDESONIDE 0.5 MG/2 ML NEB RESP TX SCH (08:49)
[2019-05-27] MEDS: DORNASE ALFA 2.5 MG/2.5 ML VIAL RESP TX SCH (08:59)
[2019-05-27] MEDS ORDERED: amLODIPine 5 MG TABLET PO SCH (09:00)
[2019-05-27] MEDS: MECLIZINE 25 MG TABLET PO SCH ×2 (09:13→15:59)
[2019-05-27] MEDS: METOPROLOL TARTRATE 50 MG TABLET PO SCH (09:13)
[2019-05-27] MEDS: APIXABAN 5 MG TABLET PO SCH (09:13)
[2019-05-27] MEDS: DOCUSATE SODIUM 100 MG CAPSULE PO SCH (09:13)
[2019-05-27] MEDS: FUROSEMIDE 40 MG TABLET PO SCH (09:14)
[2019-05-27] MEDS: methylPREDNISolone SOD SUC 40 MG/1 ML VIAL IV SCH (09:14)
[2019-05-27] MEDS: allopurinoL 300 MG TABLET PO SCH (09:14)
[2019-05-27] MEDS: BENZONATATE 100 MG CAPSULE PO SCH ×2 (09:14→15:59)
[2019-05-27] MEDS: PANTOPRAZOLE 40 MG TABLET PO SCH (09:14)
[2019-05-27] MEDS: MULTIVITAMIN (CENTRUM) TABLET PO SCH (09:14)
[2019-05-27] MEDS: ASPIRIN CHEW 81 MG TABLET PO SCH (09:14)
[2019-05-27] MEDS: AZITHROMYCIN INJ 250 MG in SODIUM CHLORIDE 0.9% 150 ML IV SCH (09:18)
[2019-05-27] MEDS ORDERED: TUBERCULIN SKIN TEST 0.1 ML SYRINGE INTRADERM ONE (10:07)
[2019-05-27] MEDS ORDERED: FUROSEMIDE 40 MG/4 ML VIAL IV ONE (12:00)
[2019-05-27 15:41] VITALS: BP 153/50
== END 2019-05-27 15:58 | disposition swing bed (61) | DRG 202 ==
LOC: N.ED 08:22 → N.EDINP 08:22 → N.5E 11:05
PROVIDERS: ADMIT Family Medicine; ATTEND Family Medicine

== ENCOUNTER 2020-08-02 23:15 | Observation (INO) ==
[2020-08-03] MEDS ORDERED: methylPREDNISolone SOD SUC 125 MG/2 ML VIAL IV STA (00:10)
[2020-08-03] MEDS ORDERED: ONDANSETRON 4 MG/2 ML VIAL IV STA (00:10)
[2020-08-03] MEDS ORDERED: FUROSEMIDE 100 MG/10 ML VIAL IV STA (00:10)
[2020-08-03] MEDS ORDERED: ALBUTEROL/IPRATROPIUM 3 ML NEB RESP TX STA (00:10)
[2020-08-03 00:41] LABS: Basophils # 0.1 10*3/uL (0.0-0.2); Basophils % 0.8 % (0.0-0.8); Eosinophils # 0.2 10*3/uL (0.0-0.87); Eosinophils % 1.5 % (0.00-10.9); Hematocrit 32.4 VOL% (35.7-47.0); Hemoglobin 10.7 GM/DL (12.0-16.0); Immature Granulocytes % 0.6 %; Immature Granulocytes Absolute 0.07 #; Lymphocytes # 1.8 10*3/uL (1.4-4.0); Lymphocytes % 15.2 % (21.3-54.2); Mean Corpuscular Volume 94.2 FL (87-102); Mean Platelet Volume 10.3 FL (9.6-12.0); Monocytes % 8.7 % (1.7-12.7); Neutrophils % 73.2 % (38.7-73.9); Platelet Count 183 T/CUMM (130-400); Red Blood Count 3.44 MC/CUMM (3.8-5.5); Red Cell Distribution Width 14.1 % (9.3-17.3); White Blood Count 11.7 T/CUMM (4-12)
[2020-08-03] MEDS ORDERED: BICILLIN LA 1,200,000 UNIT/2 ML SYRINGE IM STA (00:46)
[2020-08-03 00:48] LABS: INR 2.4; PT Patient Result 24.9 SECS (9.8-11.9)
[2020-08-03 00:56] LABS: Albumin 3.1 G/DL (3.4-5.0); Bilirubin,Total 0.6 MG/DL (0.2-1.0); Calcium 8.9 MG/DL (8.5-10.1); Total Protein 7.1 G/DL (5.0-7.5)
[2020-08-03 00:57] LABS: Ferritin 36.4 ng/ml (8-252); Osmolality,Calculated 271.2 MOS/KG (273-304); Potassium 4.1 MMOL/L (3.5-5.1)
[2020-08-03 01:10] LABS: Bilirubin,Urine Negative (Negative); Blood, Urine Negative (Negative); Glucose,Urine (UA) Negative (Negative); Ketones,Urine Negative (Negative); Nitrite,Urine Negative (Negative); Protein,Urine Negative; RBC,Urine 1 /HPF (0-4); Squamous Epithelial Cell,Urine Occasional /HPF (0-10); Urine Appearance CLEAR (Clear); Urine Color Yellow (Yellow); Urine Specific Gravity 1.014 (1.001-1.035); Urine Urobilinogen < 2.0 EU/DL (0.2-1.0); WBC,Urine 3 /HPF (0-6)
[2020-08-03] MEDS ORDERED: GLUCAGON 1 MG VIAL IM PRN (02:59)
[2020-08-03] MEDS ORDERED: ONDANSETRON 4 MG/2 ML VIAL IV PRN (02:59)
[2020-08-03] MEDS ORDERED: MORPHINE 4 MG/1 ML VIAL IV PRN (02:59)
[2020-08-03] MEDS ORDERED: DEXTROSE 50% 25 GM/50 ML VIAL IV PRN (02:59)
[2020-08-03] MEDS ORDERED: ACETAMINOPHEN 325 MG TABLET PO PRN (02:59)
[2020-08-03] MEDS ORDERED: SODIUM CHLORIDE 0.9% 1,000 ML IV SCH (03:00)
[2020-08-03] MEDS: PIPERACILLIN/TAZOBACTAM 3,375 MG in SODIUM CHLORIDE 0.9% 100 ML IV SCH ×3 (03:11→18:30)
[2020-08-03] MEDS: ALBUTEROL/IPRATROPIUM 3 ML NEB RESP TX SCH ×5 (03:18→19:50)
[2020-08-03 04:46] LABS: Risk Ratio 5.13; VLDL CHOLESTEROL 21.8 MG/DL
[2020-08-03] MEDS: INSULIN REGULAR 100 UNIT/ML SUBCUT SCH ×3 (06:01→18:20)
[2020-08-03] MEDS ORDERED: metOLazone 5 MG TABLET PO PRN (07:48)
[2020-08-03] MEDS ORDERED: MECLIZINE 25 MG TABLET PO PRN (07:48)
[2020-08-03] MEDS: methylPREDNISolone SOD SUC 40 MG/1 ML VIAL IV SCH ×2 (08:30→16:00)
[2020-08-03] MEDS ORDERED: cloNIDine 0.1 MG TABLET ONE (08:36)
[2020-08-03] MEDS: FUROSEMIDE 40 MG/4 ML VIAL IV SCH ×2 (08:45→16:02)
[2020-08-03] MEDS: DOCUSATE SODIUM 100 MG CAPSULE PO SCH ×2 (09:06→20:43)
[2020-08-03] MEDS: POTASSIUM CHLORIDE 20 MEQ TABLET PO SCH ×2 (09:07→20:44)
[2020-08-03] MEDS: ISOSORBIDE MONONITRATE 30 MG TABLET PO SCH (09:07)
[2020-08-03] MEDS: METOPROLOL TARTRATE 100 MG TABLET PO SCH ×2 (09:07→20:44)
[2020-08-03] MEDS: MAGNESIUM OXIDE 400 MG TABLET PO SCH ×2 (09:07→20:44)
[2020-08-03] MEDS: APIXABAN 5 MG TABLET PO SCH ×2 (09:07→20:44)
[2020-08-03] MEDS: PANTOPRAZOLE 40 MG VIAL IV SCH (09:08)
[2020-08-03] MEDS: RANOLAZINE 500 MG TABLET PO SCH ×2 (09:15→20:44)
[2020-08-03] MEDS: GLIMEPIRIDE 2 MG TABLET PO SCH (09:15)
[2020-08-03 09:45] LABS: Troponin I < 0.015 NG/ML (0.00-0.045)
[2020-08-03 16:48] LABS: Troponin I < 0.015 NG/ML (0.00-0.045)
[2020-08-03] MEDS: allopurinoL 300 MG TABLET PO SCH (18:19)
[2020-08-03] MEDS: ASPIRIN CHEW 81 MG TABLET PO SCH (18:19)
[2020-08-03] MEDS: CITALOPRAM 20 MG TABLET PO SCH (20:43)
[2020-08-03] MEDS: ATORVASTATIN 40 MG TABLET PO SCH (20:44)
[2020-08-03] MEDS: TERAZOSIN 1 MG CAPSULE PO SCH (20:44)
[2020-08-04] MEDS: ALBUTEROL/IPRATROPIUM 3 ML NEB RESP TX SCH ×7 (00:48→23:40)
[2020-08-04 01:07] LABS: Troponin I < 0.015 NG/ML (0.00-0.045)
[2020-08-04] MEDS: methylPREDNISolone SOD SUC 40 MG/1 ML VIAL IV SCH ×3 (01:08→16:08)
[2020-08-04] MEDS: INSULIN REGULAR 100 UNIT/ML SUBCUT SCH ×4 (01:08→18:11)
[2020-08-04] MEDS: PIPERACILLIN/TAZOBACTAM 3,375 MG in SODIUM CHLORIDE 0.9% 100 ML IV SCH ×3 (03:16→18:12)
[2020-08-04] MEDS: RANOLAZINE 500 MG TABLET PO SCH ×2 (09:17→22:28)
[2020-08-04] MEDS: POTASSIUM CHLORIDE 20 MEQ TABLET PO SCH ×2 (09:18→22:32)
[2020-08-04] MEDS: APIXABAN 5 MG TABLET PO SCH ×2 (09:18→22:27)
[2020-08-04] MEDS: GLIMEPIRIDE 2 MG TABLET PO SCH (09:19)
[2020-08-04] MEDS: DOCUSATE SODIUM 100 MG CAPSULE PO SCH ×2 (09:19→22:30)
[2020-08-04] MEDS: MAGNESIUM OXIDE 400 MG TABLET PO SCH ×2 (09:19→22:31)
[2020-08-04] MEDS: METOPROLOL TARTRATE 100 MG TABLET PO SCH ×2 (09:20→22:30)
[2020-08-04] MEDS: ISOSORBIDE MONONITRATE 30 MG TABLET PO SCH (09:20)
[2020-08-04] MEDS: FUROSEMIDE 40 MG/4 ML VIAL IV SCH ×2 (09:21→16:15)
[2020-08-04] MEDS: PANTOPRAZOLE 40 MG VIAL IV SCH (09:26)
[2020-08-04] MEDS: ASPIRIN CHEW 81 MG TABLET PO SCH (18:11)
[2020-08-04] MEDS: allopurinoL 300 MG TABLET PO SCH (18:12)
[2020-08-04] MEDS: CITALOPRAM 20 MG TABLET PO SCH (22:28)
[2020-08-04] MEDS: TERAZOSIN 1 MG CAPSULE PO SCH (22:29)
[2020-08-04] MEDS: ATORVASTATIN 40 MG TABLET PO SCH (22:29)
[2020-08-04] MEDS: ZALEPLON 5 MG CAPSULE PO PRN (22:30)
[2020-08-05] MEDS: methylPREDNISolone SOD SUC 40 MG/1 ML VIAL IV SCH ×3 (00:59→15:22)
[2020-08-05] MEDS: INSULIN REGULAR 100 UNIT/ML SUBCUT SCH ×4 (01:08→17:02)
[2020-08-05] MEDS: PIPERACILLIN/TAZOBACTAM 3,375 MG in SODIUM CHLORIDE 0.9% 100 ML IV SCH ×3 (03:00→18:05)
[2020-08-05] MEDS: ALBUTEROL/IPRATROPIUM 3 ML NEB RESP TX SCH ×5 (04:55→19:46)
[2020-08-05 09:01] LABS: Hematocrit 33.5 VOL% (35.7-47.0); Hemoglobin 10.8 GM/DL (12.0-16.0); Immature Granulocytes % 2.3 %; Immature Granulocytes Absolute 0.28 #; Mean Corpuscular HGB Conc 32.2 GM/DL (32-36); Mean Corpuscular Volume 95.7 FL (87-102); Mean Platelet Volume 10.1 FL (9.6-12.0); Neutrophils % 86.7 % (38.7-73.9); Platelet Count 182 T/CUMM (130-400); Red Cell Distribution Width 14.5 % (9.3-17.3)
[2020-08-05] MEDS: POTASSIUM CHLORIDE 20 MEQ TABLET PO SCH ×2 (09:04→21:40)
[2020-08-05] MEDS: MAGNESIUM OXIDE 400 MG TABLET PO SCH ×2 (09:04→21:39)
[2020-08-05] MEDS: RANOLAZINE 500 MG TABLET PO SCH ×2 (09:05→21:39)
[2020-08-05] MEDS: METOPROLOL TARTRATE 100 MG TABLET PO SCH ×2 (09:05→21:37)
[2020-08-05] MEDS: DOCUSATE SODIUM 100 MG CAPSULE PO SCH ×2 (09:05→21:37)
[2020-08-05] MEDS: ISOSORBIDE MONONITRATE 30 MG TABLET PO SCH (09:05)
[2020-08-05] MEDS: GLIMEPIRIDE 2 MG TABLET PO SCH (09:05)
[2020-08-05] MEDS: APIXABAN 5 MG TABLET PO SCH ×2 (09:05→21:36)
[2020-08-05] MEDS: PANTOPRAZOLE 40 MG VIAL IV SCH (09:08)
[2020-08-05] MEDS: FUROSEMIDE 40 MG/4 ML VIAL IV SCH ×2 (09:11→15:19)
[2020-08-05 09:22] LABS: Osmolality,Calculated 283.7 MOS/KG (273-304); Potassium 4.2 MMOL/L (3.5-5.1)
[2020-08-05] MEDS ORDERED: hydrALAZINE 20 MG/1 ML VIAL IV PRN (16:15)
[2020-08-05] MEDS: ASPIRIN CHEW 81 MG TABLET PO SCH (18:05)
[2020-08-05] MEDS: allopurinoL 300 MG TABLET PO SCH (18:05)
[2020-08-05] MEDS ORDERED: BISACODYL 5 MG TABLET PO PRN (21:19)
[2020-08-05] MEDS ORDERED: BISACODYL 5 MG TABLET PO ONE (21:19)
[2020-08-05] MEDS: ATORVASTATIN 40 MG TABLET PO SCH (21:37)
[2020-08-05] MEDS: TERAZOSIN 1 MG CAPSULE PO SCH (21:38)
[2020-08-05] MEDS: CITALOPRAM 20 MG TABLET PO SCH (21:38)
[2020-08-06] MEDS: ALBUTEROL/IPRATROPIUM 3 ML NEB RESP TX SCH ×4 (00:23→12:19)
[2020-08-06] MEDS: INSULIN REGULAR 100 UNIT/ML SUBCUT SCH ×3 (01:35→13:16)
[2020-08-06] MEDS: ZALEPLON 5 MG CAPSULE PO PRN (01:35)
[2020-08-06] MEDS: methylPREDNISolone SOD SUC 40 MG/1 ML VIAL IV SCH ×2 (01:37→09:05)
[2020-08-06] MEDS: PIPERACILLIN/TAZOBACTAM 3,375 MG in SODIUM CHLORIDE 0.9% 100 ML IV SCH ×2 (05:13→13:15)
[2020-08-06 08:55] VITALS: BP 153/47
[2020-08-06] MEDS: PANTOPRAZOLE 40 MG VIAL IV SCH (09:02)
[2020-08-06] MEDS: RANOLAZINE 500 MG TABLET PO SCH (09:02)
[2020-08-06] MEDS: GLIMEPIRIDE 2 MG TABLET PO SCH (09:03)
[2020-08-06] MEDS: MAGNESIUM OXIDE 400 MG TABLET PO SCH (09:03)
[2020-08-06] MEDS: DOCUSATE SODIUM 100 MG CAPSULE PO SCH (09:03)
[2020-08-06] MEDS: ISOSORBIDE MONONITRATE 30 MG TABLET PO SCH (09:03)
[2020-08-06] MEDS: POTASSIUM CHLORIDE 20 MEQ TABLET PO SCH (09:03)
[2020-08-06] MEDS: APIXABAN 5 MG TABLET PO SCH (09:04)
[2020-08-06] MEDS: METOPROLOL TARTRATE 100 MG TABLET PO SCH (09:04)
[2020-08-06] MEDS: FUROSEMIDE 40 MG/4 ML VIAL IV SCH (09:06)
== END 2020-08-06 12:47 | disposition home or self-care (01) ==
LOC: N.ED 23:15 → N.EDINP 23:15 → N.TELEN 08-03 14:57
PROVIDERS: ADMIT Family Medicine; ATTEND Family Medicine

== ENCOUNTER 2020-09-03 18:59 | Inpatient (IN) ==
[2020-09-03 19:25] LABS: Basophils # 0.1 10*3/uL (0.0-0.2); Basophils % 0.5 % (0.0-0.8); Eosinophils # 0.1 10*3/uL (0.0-0.87); Eosinophils % 0.5 % (0.00-10.9); Hematocrit 35.9 VOL% (35.7-47.0); Hemoglobin 11.8 GM/DL (12.0-16.0); Immature Granulocytes % 0.9 %; Lymphocytes # 2.5 10*3/uL (1.4-4.0); Lymphocytes % 21.6 % (21.3-54.2); Mean Corpuscular HGB Conc 32.9 GM/DL (32-36); Mean Platelet Volume 10.8 FL (9.6-12.0); Monocytes % 7.3 % (1.7-12.7); NRBC # 0.02 10*3/uL; Neutrophils % 69.2 % (38.7-73.9); Platelet Count 186 T/CUMM (130-400); Red Blood Count 3.82 MC/CUMM (3.8-5.5); Red Cell Distribution Width 14.9 % (9.3-17.3); White Blood Count 11.6 T/CUMM (4-12)
[2020-09-03 19:44] LABS: Albumin 3.8 G/DL (3.4-5.0); Bilirubin,Total 0.8 MG/DL (0.2-1.0); Calcium 9.3 MG/DL (8.5-10.1); Potassium 3.8 MMOL/L (3.5-5.1); Total Protein 7.7 G/DL (6.4-8.2)
[2020-09-03] MEDS ORDERED: FUROSEMIDE 40 MG/4 ML VIAL IV STA (20:12)
[2020-09-03 20:28] LABS: Bacteria,Urine Occasional /HPF (Few); Bilirubin,Urine Negative (Negative); Blood, Urine Negative (Negative); Glucose,Urine (UA) Negative (Negative); Ketones,Urine Negative (Negative); Nitrite,Urine Negative (Negative); Protein,Urine Negative; RBC,Urine 1 /HPF (0-4); Squamous Epithelial Cell,Urine Occasional /HPF (0-10); Urine Appearance CLEAR (Clear); Urine Color Yellow (Yellow); Urine Specific Gravity 1.012 (1.001-1.035); Urine Urobilinogen < 2.0 EU/DL (0.2-1.0)
[2020-09-03] MEDS ORDERED: ACETAMINOPHEN 500 MG TABLET ONE (21:07)
[2020-09-03] MEDS ORDERED: ACETAMINOPHEN 500 MG TABLET PO STA (21:12)
[2020-09-03] MEDS ORDERED: ONDANSETRON 4 MG/2 ML VIAL IV PRN (21:49)
[2020-09-04 05:21] LABS: Basophils # 0.1 10*3/uL (0.0-0.2); Basophils % 0.9 % (0.0-0.8); Eosinophils # 0.1 10*3/uL (0.0-0.87); Eosinophils % 1.1 % (0.00-10.9); Hematocrit 31.1 VOL% (35.7-47.0); Hemoglobin 10.4 GM/DL (12.0-16.0); Immature Granulocytes % 0.6 %; Immature Granulocytes Absolute 0.05 #; Lymphocytes # 2.8 10*3/uL (1.4-4.0); Lymphocytes % 34.7 % (21.3-54.2); Mean Corpuscular HGB Conc 33.4 GM/DL (32-36); Mean Corpuscular Volume 93.7 FL (87-102); Mean Platelet Volume 11.5 FL (9.6-12.0); Monocytes % 9.1 % (1.7-12.7); Neutrophils % 53.6 % (38.7-73.9); Platelet Count 141 T/CUMM (130-400); Red Blood Count 3.32 MC/CUMM (3.8-5.5); Red Cell Distribution Width 14.9 % (9.3-17.3); White Blood Count 8.2 T/CUMM (4-12)
[2020-09-04 05:44] LABS: Albumin 2.9 G/DL (3.4-5.0); Bilirubin,Total 1.1 MG/DL (0.2-1.0); Calcium 8.8 MG/DL (8.5-10.1); Osmolality,Calculated 279.5 MOS/KG (273-304); Potassium 3.4 MMOL/L (3.5-5.1); Total Protein 6.2 G/DL (6.4-8.2)
[2020-09-04] MEDS ORDERED: metOLazone 5 MG TABLET PO PRN (08:15)
[2020-09-04] MEDS ORDERED: MECLIZINE 25 MG TABLET PO PRN (08:15)
[2020-09-04] MEDS: GLIMEPIRIDE 2 MG TABLET PO SCH (09:30)
[2020-09-04] MEDS: POTASSIUM CHLORIDE 20 MEQ TABLET PO SCH ×2 (09:31→21:07)
[2020-09-04] MEDS: MAGNESIUM OXIDE 400 MG TABLET PO SCH ×2 (09:31→21:08)
[2020-09-04] MEDS: DOCUSATE SODIUM 100 MG CAPSULE PO SCH ×2 (09:31→21:08)
[2020-09-04] MEDS: ISOSORBIDE MONONITRATE 30 MG TABLET PO SCH (09:31)
[2020-09-04] MEDS: PANTOPRAZOLE 40 MG TABLET PO SCH (09:32)
[2020-09-04] MEDS: APIXABAN 5 MG TABLET PO SCH ×2 (09:32→21:08)
[2020-09-04] MEDS: FUROSEMIDE 40 MG/4 ML VIAL IV SCH ×3 (09:32→21:09)
[2020-09-04] MEDS: METOPROLOL TARTRATE 50 MG TABLET PO SCH ×2 (09:32→21:07)
[2020-09-04] MEDS: ACETAMINOPHEN 325 MG TABLET PO PRN ×2 (13:33→21:07)
[2020-09-04] MEDS: cefTRIAXone 1,000 MG in SYRINGE 1 EACH IV SCH (16:46)
[2020-09-04 17:30] LABS: Bacteria,Urine Occasional /HPF (Few); Bilirubin,Urine Negative (Negative); Blood, Urine Small mg/dL (Negative); Glucose,Urine (UA) Negative (Negative); Ketones,Urine Negative (Negative); Mucus,Urine Occasional /LPF (Occasional); Nitrite,Urine Negative (Negative); Protein,Urine Negative; RBC,Urine 16 /HPF (0-4); Squamous Epithelial Cell,Urine Occasional /HPF (0-10); Urine Appearance CLEAR (Clear); Urine Color Yellow (Yellow); Urine Specific Gravity 1.014 (1.001-1.035); WBC,Urine 3 /HPF (0-6)
[2020-09-04] MEDS ORDERED: NON-FORMULARY MEDICATION (Omeprazole 20 mg Capsule,Delayed Release(Dr/Ec)) PO SCH (19:00)
[2020-09-04] MEDS: TERAZOSIN 1 MG CAPSULE PO SCH (21:08)
[2020-09-04] MEDS: CITALOPRAM 20 MG TABLET PO SCH (21:08)
[2020-09-04] MEDS: allopurinoL 300 MG TABLET PO SCH (21:08)
[2020-09-04] MEDS: ATORVASTATIN 40 MG TABLET PO SCH (21:09)
[2020-09-04] MEDS: RANOLAZINE 500 MG TABLET PO SCH (21:55)
[2020-09-05] MEDS: FUROSEMIDE 40 MG/4 ML VIAL IV SCH (08:36)
[2020-09-05] MEDS: POTASSIUM CHLORIDE 20 MEQ TABLET PO SCH ×2 (08:37→20:26)
[2020-09-05] MEDS: APIXABAN 5 MG TABLET PO SCH ×2 (08:37→20:24)
[2020-09-05] MEDS: DOCUSATE SODIUM 100 MG CAPSULE PO SCH ×2 (08:37→20:25)
[2020-09-05] MEDS: METOPROLOL TARTRATE 50 MG TABLET PO SCH (08:38)
[2020-09-05] MEDS: RANOLAZINE 500 MG TABLET PO SCH ×2 (08:38→20:25)
[2020-09-05] MEDS: GLIMEPIRIDE 2 MG TABLET PO SCH (08:38)
[2020-09-05] MEDS: PANTOPRAZOLE 40 MG TABLET PO SCH (08:38)
[2020-09-05] MEDS: MAGNESIUM OXIDE 400 MG TABLET PO SCH ×2 (08:38→20:25)
[2020-09-05] MEDS: ISOSORBIDE MONONITRATE 30 MG TABLET PO SCH (08:38)
[2020-09-05 11:48] LABS: Calcium 8.8 MG/DL (8.5-10.1); Osmolality,Calculated 277.8 MOS/KG (273-304); Potassium 3.7 MMOL/L (3.5-5.1)
[2020-09-05 11:51] LABS: Basophils # 0.1 10*3/uL (0.0-0.2); Basophils % 0.8 % (0.0-0.8); Eosinophils # 0.1 10*3/uL (0.0-0.87); Eosinophils % 1.1 % (0.00-10.9); Hematocrit 35.1 VOL% (35.7-47.0); Hemoglobin 11.3 GM/DL (12.0-16.0); Immature Granulocytes % 0.6 %; Immature Granulocytes Absolute 0.05 #; Lymphocytes # 2.4 10*3/uL (1.4-4.0); Lymphocytes % 27.2 % (21.3-54.2); Mean Corpuscular HGB Conc 32.2 GM/DL (32-36); Mean Corpuscular Volume 94.6 FL (87-102); Mean Platelet Volume 10.2 FL (9.6-12.0); Monocytes % 9.1 % (1.7-12.7); Neutrophils % 61.2 % (38.7-73.9); Platelet Count 169 T/CUMM (130-400); Red Blood Count 3.71 MC/CUMM (3.8-5.5); Red Cell Distribution Width 15.1 % (9.3-17.3)
[2020-09-05] MEDS: cefTRIAXone 1,000 MG in SYRINGE 1 EACH IV SCH (16:16)
[2020-09-05] MEDS: FUROSEMIDE 40 MG TABLET PO SCH (16:17)
[2020-09-05] MEDS: CITALOPRAM 20 MG TABLET PO SCH (20:24)
[2020-09-05] MEDS: cloNIDine 0.1 MG TABLET PO SCH (20:24)
[2020-09-05] MEDS: TERAZOSIN 1 MG CAPSULE PO SCH (20:24)
[2020-09-05] MEDS: ATORVASTATIN 40 MG TABLET PO SCH (20:24)
[2020-09-05] MEDS: METOPROLOL TARTRATE 25 MG TABLET PO SCH (20:25)
[2020-09-05] MEDS: allopurinoL 300 MG TABLET PO SCH (20:26)
[2020-09-05] MEDS: ACETAMINOPHEN 325 MG TABLET PO PRN (21:10)
[2020-09-06 05:31] LABS: Basophils # 0.1 10*3/uL (0.0-0.2); Basophils % 0.9 % (0.0-0.8); Eosinophils # 0.1 10*3/uL (0.0-0.87); Eosinophils % 2.1 % (0.00-10.9); Hematocrit 31.2 VOL% (35.7-47.0); Hemoglobin 10.1 GM/DL (12.0-16.0); Immature Granulocytes % 0.8 %; Immature Granulocytes Absolute 0.05 #; Lymphocytes % 29.8 % (21.3-54.2); Mean Corpuscular HGB Conc 32.4 GM/DL (32-36); Mean Corpuscular Volume 94.3 FL (87-102); Mean Platelet Volume 11.3 FL (9.6-12.0); Monocytes % 8.7 % (1.7-12.7); Neutrophils % 57.7 % (38.7-73.9); Platelet Count 157 T/CUMM (130-400); Red Blood Count 3.31 MC/CUMM (3.8-5.5); Red Cell Distribution Width 14.7 % (9.3-17.3); White Blood Count 6.6 T/CUMM (4-12)
[2020-09-06 05:57] LABS: Hypochromasia Slight; Microcytosis 1+; Ovalocytes Slight
[2020-09-06 05:58] LABS: Platelet Estimate Adequate
[2020-09-06 06:07] LABS: Calcium 9.1 MG/DL (8.5-10.1); Osmolality,Calculated 281.4 MOS/KG (273-304); Potassium 4.3 MMOL/L (3.5-5.1)
[2020-09-06 07:47] LABS: Albumin 2.7 G/DL (3.4-5.0); Bilirubin,Direct 0.15 MG/DL (0.0-0.20); Bilirubin,Indirect 0.5 MG/DL (0.0-1.0); Bilirubin,Total 0.6 MG/DL (0.2-1.0); Total Protein 6.3 G/DL (6.4-8.2)
[2020-09-06] MEDS ORDERED: COLCHICINE 0.6 MG CAPSULE PO SCH (09:00)
[2020-09-06] MEDS: FUROSEMIDE 40 MG TABLET PO SCH ×2 (09:30→16:26)
[2020-09-06] MEDS: MAGNESIUM OXIDE 400 MG TABLET PO SCH ×2 (09:30→21:01)
[2020-09-06] MEDS: PANTOPRAZOLE 40 MG TABLET PO SCH (09:30)
[2020-09-06] MEDS: RANOLAZINE 500 MG TABLET PO SCH ×2 (09:30→21:01)
[2020-09-06] MEDS: ISOSORBIDE MONONITRATE 30 MG TABLET PO SCH (09:31)
[2020-09-06] MEDS: APIXABAN 5 MG TABLET PO SCH ×2 (09:31→21:01)
[2020-09-06] MEDS: GLIMEPIRIDE 2 MG TABLET PO SCH (09:31)
[2020-09-06] MEDS: DOCUSATE SODIUM 100 MG CAPSULE PO SCH ×2 (09:31→21:01)
[2020-09-06] MEDS: cloNIDine 0.1 MG TABLET PO SCH ×2 (09:31→21:01)
[2020-09-06] MEDS: METOPROLOL TARTRATE 25 MG TABLET PO SCH ×2 (09:32→21:02)
[2020-09-06] MEDS: POTASSIUM CHLORIDE 20 MEQ TABLET PO SCH ×2 (09:32→21:01)
[2020-09-06] MEDS: COLCHICINE 0.6 MG CAPSULE PO SCH (09:43)
[2020-09-06] MEDS: cefTRIAXone 1,000 MG in SYRINGE 1 EACH IV SCH (16:25)
[2020-09-06 16:51] LABS: Bilirubin,Urine Negative (Negative); Blood, Urine Negative (Negative); Glucose,Urine (UA) Negative (Negative); Ketones,Urine Negative (Negative); Mucus,Urine Occasional /LPF (Occasional); Nitrite,Urine Negative (Negative); Protein,Urine Negative; Squamous Epithelial Cell,Urine Occasional /HPF (0-10); Urine Appearance CLEAR (Clear); Urine Color Yellow (Yellow); Urine Specific Gravity 1.012 (1.001-1.035); Urine Urobilinogen < 2.0 EU/DL (0.2-1.0)
[2020-09-06] MEDS: ACETAMINOPHEN 325 MG TABLET PO PRN (17:49)
[2020-09-06] MEDS: allopurinoL 300 MG TABLET PO SCH (18:38)
[2020-09-06] MEDS: CITALOPRAM 20 MG TABLET PO SCH (21:01)
[2020-09-06] MEDS: ATORVASTATIN 40 MG TABLET PO SCH (21:01)
[2020-09-06] MEDS: TERAZOSIN 1 MG CAPSULE PO SCH (21:01)
[2020-09-07] MEDS: cloNIDine 0.1 MG TABLET PO SCH ×2 (08:46→21:47)
[2020-09-07] MEDS: MAGNESIUM OXIDE 400 MG TABLET PO SCH ×2 (08:46→21:48)
[2020-09-07] MEDS: GLIMEPIRIDE 2 MG TABLET PO SCH (08:47)
[2020-09-07] MEDS: POTASSIUM CHLORIDE 20 MEQ TABLET PO SCH ×2 (08:47→21:47)
[2020-09-07] MEDS: RANOLAZINE 500 MG TABLET PO SCH ×2 (08:47→21:47)
[2020-09-07] MEDS: COLCHICINE 0.6 MG CAPSULE PO SCH (08:47)
[2020-09-07] MEDS: APIXABAN 5 MG TABLET PO SCH ×2 (08:47→21:48)
[2020-09-07] MEDS: ISOSORBIDE MONONITRATE 30 MG TABLET PO SCH (08:48)
[2020-09-07] MEDS: FUROSEMIDE 40 MG TABLET PO SCH ×2 (08:48→15:39)
[2020-09-07] MEDS: DOCUSATE SODIUM 100 MG CAPSULE PO SCH ×2 (08:48→21:48)
[2020-09-07] MEDS: PANTOPRAZOLE 40 MG TABLET PO SCH (08:48)
[2020-09-07] MEDS: METOPROLOL TARTRATE 25 MG TABLET PO SCH ×2 (08:48→21:47)
[2020-09-07] MEDS: cefTRIAXone 1,000 MG in SYRINGE 1 EACH IV SCH (15:39)
[2020-09-07] MEDS: allopurinoL 300 MG TABLET PO SCH (18:16)
[2020-09-07] MEDS: ACETAMINOPHEN 325 MG TABLET PO PRN (18:38)
[2020-09-07] MEDS: ATORVASTATIN 40 MG TABLET PO SCH (21:47)
[2020-09-07] MEDS: TERAZOSIN 1 MG CAPSULE PO SCH (21:48)
[2020-09-07] MEDS: CITALOPRAM 20 MG TABLET PO SCH (21:48)
[2020-09-08] MEDS: MAGNESIUM OXIDE 400 MG TABLET PO SCH (09:09)
[2020-09-08] MEDS: cloNIDine 0.1 MG TABLET PO SCH (09:10)
[2020-09-08] MEDS: DOCUSATE SODIUM 100 MG CAPSULE PO SCH (09:10)
[2020-09-08] MEDS: ISOSORBIDE MONONITRATE 30 MG TABLET PO SCH (09:10)
[2020-09-08] MEDS: FUROSEMIDE 40 MG TABLET PO SCH (09:10)
[2020-09-08] MEDS: METOPROLOL TARTRATE 25 MG TABLET PO SCH (09:10)
[2020-09-08] MEDS: APIXABAN 5 MG TABLET PO SCH (09:11)
[2020-09-08] MEDS: GLIMEPIRIDE 2 MG TABLET PO SCH (09:11)
[2020-09-08] MEDS: POTASSIUM CHLORIDE 20 MEQ TABLET PO SCH (09:11)
[2020-09-08] MEDS: RANOLAZINE 500 MG TABLET PO SCH (09:11)
[2020-09-08] MEDS: COLCHICINE 0.6 MG CAPSULE PO SCH (09:12)
[2020-09-08] MEDS: PANTOPRAZOLE 40 MG TABLET PO SCH (09:12)
[2020-09-08 11:30] VITALS: BP 149/69
== END 2020-09-08 14:30 | disposition home health service (06) | DRG 291 ==
LOC: N.ED 18:59 → N.EDINP 21:48 → N.TELEN 23:15
PROVIDERS: ADMIT Family Medicine; ATTEND Family Medicine

== ENCOUNTER 2020-12-07 12:31 | Observation (INO) ==
[2020-12-07] MEDS ORDERED: FUROSEMIDE 100 MG/10 ML VIAL IV STA (14:09)
[2020-12-07] MEDS ORDERED: cefTRIAXone 1,000 MG in SODIUM CHLORIDE 0.9% 100 ML IV STA (14:10)
[2020-12-07] MEDS ORDERED: AZITHROMYCIN 250 MG TABLET PO STA (14:10)
[2020-12-07] MEDS ORDERED: DEXTROSE 50% 25 GM/50 ML VIAL IV PRN (14:15)
[2020-12-07] MEDS ORDERED: ONDANSETRON 4 MG/2 ML VIAL IV PRN (14:15)
[2020-12-07] MEDS ORDERED: GLUCAGON 1 MG VIAL IM PRN (14:15)
[2020-12-07 14:21] LABS: Basophils # 0.1 10*3/uL (0.0-0.2); Basophils % 0.8 % (0.0-0.8); Eosinophils # 0.1 10*3/uL (0.0-0.87); Eosinophils % 1.1 % (0.00-10.9); Hematocrit 34.4 VOL% (35.7-47.0); Hemoglobin 11.3 GM/DL (12.0-16.0); Immature Granulocytes % 0.5 %; Immature Granulocytes Absolute 0.05 #; Lymphocytes # 2.1 10*3/uL (1.4-4.0); Mean Corpuscular HGB Conc 32.8 GM/DL (32-36); Mean Corpuscular Volume 93.7 FL (87-102); Mean Platelet Volume 10.9 FL (9.6-12.0); Monocytes % 7.5 % (1.7-12.7); Neutrophils % 70.1 % (38.7-73.9); Platelet Count 175 T/CUMM (130-400); Red Blood Count 3.67 MC/CUMM (3.8-5.5); Red Cell Distribution Width 14.9 % (9.3-17.3); White Blood Count 10.6 T/CUMM (4-12)
[2020-12-07 15:00] LABS: Albumin 3.5 G/DL (3.4-5.0); Bilirubin,Total 0.8 MG/DL (0.20-1.00); Calcium 9.2 MG/DL (8.5-10.1); Potassium 4.3 MMOL/L (3.5-5.1); Total Protein 6.9 G/DL (6.4-8.2)
[2020-12-07] MEDS: DOCUSATE SODIUM 100 MG CAPSULE PO SCH (20:42)
[2020-12-07] MEDS: POTASSIUM CHLORIDE 20 MEQ TABLET PO SCH (20:42)
[2020-12-07] MEDS: allopurinoL 300 MG TABLET PO SCH (20:42)
[2020-12-07] MEDS: cloNIDine 0.1 MG TABLET PO SCH (20:42)
[2020-12-07] MEDS: CITALOPRAM 20 MG TABLET PO SCH (20:42)
[2020-12-07] MEDS: METOPROLOL TARTRATE 25 MG TABLET PO SCH (20:42)
[2020-12-07] MEDS: RANOLAZINE 500 MG TABLET PO SCH (20:42)
[2020-12-07] MEDS: ATORVASTATIN 40 MG TABLET PO SCH (20:42)
[2020-12-07] MEDS: APIXABAN 5 MG TABLET PO SCH (20:45)
[2020-12-07] MEDS: MAGNESIUM OXIDE 400 MG TABLET PO SCH (20:46)
[2020-12-07] MEDS: ACETAMINOPHEN 325 MG TABLET PO PRN (20:56)
[2020-12-08] MEDS: ACETAMINOPHEN 325 MG TABLET PO PRN ×2 (08:45→20:54)
[2020-12-08] MEDS: TERAZOSIN 10 MG CAPSULE PO SCH (08:46)
[2020-12-08] MEDS: TORSEMIDE 20 MG TABLET PO SCH (08:46)
[2020-12-08] MEDS: cloNIDine 0.1 MG TABLET PO SCH ×2 (08:46→20:56)
[2020-12-08] MEDS: MAGNESIUM OXIDE 400 MG TABLET PO SCH ×2 (08:46→20:56)
[2020-12-08] MEDS: RANOLAZINE 500 MG TABLET PO SCH ×2 (08:46→20:56)
[2020-12-08] MEDS: GLIMEPIRIDE 2 MG TABLET PO SCH (08:47)
[2020-12-08] MEDS: ISOSORBIDE MONONITRATE 30 MG TABLET PO SCH (08:47)
[2020-12-08] MEDS: ZINC GLUCONATE 50 MG TABLET PO SCH (08:47)
[2020-12-08] MEDS: PANTOPRAZOLE 40 MG TABLET PO SCH (08:47)
[2020-12-08] MEDS: POTASSIUM CHLORIDE 20 MEQ TABLET PO SCH ×2 (08:47→20:55)
[2020-12-08] MEDS: APIXABAN 5 MG TABLET PO SCH ×2 (08:47→20:56)
[2020-12-08] MEDS: DOCUSATE SODIUM 100 MG CAPSULE PO SCH ×2 (08:48→20:55)
[2020-12-08] MEDS: METOPROLOL TARTRATE 25 MG TABLET PO SCH ×2 (08:48→20:56)
[2020-12-08] MEDS: CITALOPRAM 20 MG TABLET PO SCH (20:55)
[2020-12-08] MEDS: ATORVASTATIN 40 MG TABLET PO SCH (20:56)
[2020-12-08] MEDS: allopurinoL 300 MG TABLET PO SCH (20:56)
[2020-12-09] MEDS: cloNIDine 0.1 MG TABLET PO SCH (08:17)
[2020-12-09] MEDS: ZINC GLUCONATE 50 MG TABLET PO SCH (08:17)
[2020-12-09] MEDS: PANTOPRAZOLE 40 MG TABLET PO SCH (08:17)
[2020-12-09] MEDS: TERAZOSIN 10 MG CAPSULE PO SCH (08:17)
[2020-12-09] MEDS: APIXABAN 5 MG TABLET PO SCH (08:18)
[2020-12-09] MEDS: GLIMEPIRIDE 2 MG TABLET PO SCH (08:18)
[2020-12-09] MEDS: RANOLAZINE 500 MG TABLET PO SCH (08:18)
[2020-12-09] MEDS: METOPROLOL TARTRATE 25 MG TABLET PO SCH (08:18)
[2020-12-09] MEDS: TORSEMIDE 20 MG TABLET PO SCH (08:18)
[2020-12-09] MEDS: DOCUSATE SODIUM 100 MG CAPSULE PO SCH (08:18)
[2020-12-09] MEDS: POTASSIUM CHLORIDE 20 MEQ TABLET PO SCH (08:18)
[2020-12-09] MEDS: MAGNESIUM OXIDE 400 MG TABLET PO SCH (08:18)
[2020-12-09] MEDS: ISOSORBIDE MONONITRATE 30 MG TABLET PO SCH (08:18)
[2020-12-09 16:51] VITALS: BP 161/69
== END 2020-12-09 17:53 | disposition home or self-care (01) ==
LOC: N.ED 12:31 → N.EDINP 12:31 → N.TELEN 16:03
PROVIDERS: ADMIT Family Medicine; ATTEND Family Medicine

== ENCOUNTER 2022-07-11 10:26 | Observation (INO) ==
[2022-07-11] MEDS ORDERED: ONDANSETRON 4 MG/2 ML VIAL IV PRN (10:49)
[2022-07-11] MEDS ORDERED: ACETAMINOPHEN 325 MG TABLET PO PRN (10:49)
[2022-07-11] MEDS ORDERED: GLUCAGON 1 MG VIAL IM PRN (10:49)
[2022-07-11] MEDS ORDERED: MORPHINE 2 MG/1 ML SYRINGE IV PRN (10:49)
[2022-07-11] MEDS ORDERED: MAGNESIUM SULF RIDER 4 GM/100 ML PREMIX IV PRN (10:53)
[2022-07-11] MEDS ORDERED: MAGNESIUM SULF RIDER 2 GM/50 ML PREMIX IV PRN (10:53)
[2022-07-11] MEDS ORDERED: NITROGLYCERIN SL 0.4 MG TABLET SL PRN (10:55)
[2022-07-11] MEDS ORDERED: DEXTROSE 10% 250 ML BAG IV PRN (14:01)
[2022-07-11] MEDS: INSULIN LISPRO 100 UNIT/ML SUBCUT SCH ×3 (14:17→20:40)
[2022-07-11 14:37] LABS: Basophils % 0.5 % (0.0-0.8); Eosinophils # 0.1 10*3/uL (0.0-0.87); Eosinophils % 0.9 % (0.00-10.9); Hematocrit 37.5 VOL% (35.7-47.0); Hemoglobin 11.9 GM/DL (12.0-16.0); Immature Granulocytes % 0.6 %; Immature Granulocytes Absolute 0.05 #; Lymphocytes # 2.4 10*3/uL (1.4-4.0); Lymphocytes % 30.5 % (21.3-54.2); Mean Corpuscular HGB Conc 31.7 GM/DL (32-36); Mean Corpuscular Volume 101.9 FL (87-102); Mean Platelet Volume 10.2 FL (9.6-12.0); Monocytes # 0.5 10*3/uL (0.11-0.8); Neutrophils % 60.5 % (38.7-73.9); Platelet Count 160 T/CUMM (130-400); Red Blood Count 3.68 MC/CUMM (3.8-5.5); Red Cell Distribution Width 15.8 % (9.3-17.3)
[2022-07-11 14:55] LABS: Albumin 3.6 G/DL (3.4-5.0); Bilirubin,Total 0.4 MG/DL (0.20-1.00); Osmolality,Calculated 298.8 MOS/KG (273-304); Potassium 4.2 MMOL/L (3.5-5.1); Total Protein 6.5 G/DL (6.4-8.2)
[2022-07-11 14:56] LABS: Albumin 3.5 G/DL (3.4-5.0); Bilirubin,Total 0.4 MG/DL (0.20-1.00); Calcium 8.9 MG/DL (8.5-10.1); Osmolality,Calculated 297.8 MOS/KG (273-304); Potassium 4.5 MMOL/L (3.5-5.1); Total Protein 6.4 G/DL (6.4-8.2)
[2022-07-11] MEDS ORDERED: ALBUTEROL 2.5 MG/3 ML NEB RESP TX PRN (15:00)
[2022-07-11] MEDS ORDERED: FUROSEMIDE 40 MG/4 ML VIAL IV SCH (16:00)
[2022-07-11 18:35] LABS: Bilirubin,Urine Negative (Negative); Blood, Urine Negative (Negative); Ketones,Urine Negative (Negative); Nitrite,Urine Negative (Negative); Protein,Urine Negative (Negative); Urine Appearance Clear (Clear); Urine Color Yellow (Yellow); Urine Urobilinogen 0.2 eU/dL (<2.0)
[2022-07-11 18:37] LABS: Urine pH 5.5 (4.5-8.0)
[2022-07-11 18:38] LABS: Glucose,Urine (UA) 100 mg/dL (Negative)
[2022-07-11 18:39] LABS: Mucus,Urine Occasional /LPF (Occasional); RBC,Urine <1 /HPF (0-4); Squamous Epithelial Cell,Urine Occasional /HPF (0-10)
[2022-07-11] MEDS ORDERED: allopurinoL 300 MG TABLET PO SCH (19:00)
[2022-07-11] MEDS: ATORVASTATIN 40 MG TABLET PO SCH (20:39)
[2022-07-11] MEDS: GABAPENTIN 100 MG CAPSULE PO SCH (20:39)
[2022-07-11] MEDS: DOCUSATE SODIUM 100 MG CAPSULE PO SCH (20:39)
[2022-07-11] MEDS: guaiFENesin/DM ER 600-30 MG TABLET PO SCH (20:39)
[2022-07-11] MEDS: RANOLAZINE 500 MG TABLET PO SCH (20:39)
[2022-07-11] MEDS: POTASSIUM CHLORIDE 20 MEQ TABLET PO SCH (20:39)
[2022-07-11] MEDS: CITALOPRAM 20 MG TABLET PO SCH (20:39)
[2022-07-11] MEDS: allopurinoL 300 MG TABLET PO SCH (20:40)
[2022-07-11] MEDS: MAGNESIUM OXIDE 400 MG TABLET PO SCH (20:40)
[2022-07-11] MEDS: SACUBITRIL/VALSARTAN 49-51 MG TABLET PO SCH (20:40)
[2022-07-11] MEDS ORDERED: APIXABAN 5 MG TABLET PO SCH (21:00)
[2022-07-12 05:53] LABS: Risk Ratio 4.45; VLDL Cholesterol 34.8 MG/DL
[2022-07-12] MEDS: INSULIN LISPRO 100 UNIT/ML SUBCUT SCH ×4 (08:20→22:30)
[2022-07-12] MEDS ORDERED: TORSEMIDE 20 MG TABLET PO SCH (09:00)
[2022-07-12] MEDS: TERAZOSIN 5 MG CAPSULE PO SCH (09:53)
[2022-07-12] MEDS: DOCUSATE SODIUM 100 MG CAPSULE PO SCH ×2 (09:54→21:17)
[2022-07-12] MEDS: guaiFENesin/DM ER 600-30 MG TABLET PO SCH ×2 (09:54→22:31)
[2022-07-12] MEDS: RANOLAZINE 500 MG TABLET PO SCH ×2 (09:54→21:17)
[2022-07-12] MEDS: SACUBITRIL/VALSARTAN 49-51 MG TABLET PO SCH ×2 (09:55→21:17)
[2022-07-12] MEDS: ISOSORBIDE MONONITRATE 30 MG TABLET PO SCH (09:55)
[2022-07-12] MEDS: ASPIRIN CHEW 81 MG TABLET PO SCH (09:55)
[2022-07-12] MEDS: EZETIMIBE 10 MG TABLET PO SCH (09:55)
[2022-07-12] MEDS: DAPAGLIFLOZIN 10 MG TABLET PO SCH (09:55)
[2022-07-12] MEDS: MAGNESIUM OXIDE 400 MG TABLET PO SCH ×2 (09:56→21:18)
[2022-07-12] MEDS: POTASSIUM CHLORIDE 20 MEQ TABLET PO SCH ×2 (09:56→21:17)
[2022-07-12] MEDS: GABAPENTIN 100 MG CAPSULE PO SCH ×2 (09:57→21:17)
[2022-07-12] MEDS: MULTIVITAMIN (OCUVITE) TABLET PO SCH (09:57)
[2022-07-12] MEDS: GLIMEPIRIDE 2 MG TABLET PO SCH (09:58)
[2022-07-12] MEDS: PANTOPRAZOLE 40 MG TABLET PO SCH (09:58)
[2022-07-12] MEDS: ASCORBIC ACID 500 MG TABLET PO SCH (09:59)
[2022-07-12] MEDS: ALBUTEROL 2.5 MG/3 ML NEB RESP TX SCH ×2 (14:30→20:27)
[2022-07-12] MEDS: allopurinoL 300 MG TABLET PO SCH (21:18)
[2022-07-12] MEDS: ATORVASTATIN 40 MG TABLET PO SCH (21:18)
[2022-07-12] MEDS: CITALOPRAM 20 MG TABLET PO SCH (21:18)
[2022-07-13] MEDS: ALBUTEROL 2.5 MG/3 ML NEB RESP TX SCH ×4 (01:42→19:44)
[2022-07-13] MEDS: INSULIN LISPRO 100 UNIT/ML SUBCUT SCH ×4 (08:00→21:27)
[2022-07-13] MEDS: DAPAGLIFLOZIN 10 MG TABLET PO SCH (09:33)
[2022-07-13] MEDS: ASPIRIN CHEW 81 MG TABLET PO SCH (09:33)
[2022-07-13] MEDS: SACUBITRIL/VALSARTAN 49-51 MG TABLET PO SCH ×2 (09:33→21:26)
[2022-07-13] MEDS: MAGNESIUM OXIDE 400 MG TABLET PO SCH ×2 (09:33→21:26)
[2022-07-13] MEDS: EZETIMIBE 10 MG TABLET PO SCH (09:33)
[2022-07-13] MEDS: TERAZOSIN 5 MG CAPSULE PO SCH (09:33)
[2022-07-13] MEDS: guaiFENesin/DM ER 600-30 MG TABLET PO SCH ×2 (09:34→21:26)
[2022-07-13] MEDS: ISOSORBIDE MONONITRATE 30 MG TABLET PO SCH (09:34)
[2022-07-13] MEDS: MULTIVITAMIN (OCUVITE) TABLET PO SCH (09:34)
[2022-07-13] MEDS: PANTOPRAZOLE 40 MG TABLET PO SCH (09:34)
[2022-07-13] MEDS: POTASSIUM CHLORIDE 20 MEQ TABLET PO SCH ×2 (09:34→21:26)
[2022-07-13] MEDS: ASCORBIC ACID 500 MG TABLET PO SCH (09:34)
[2022-07-13] MEDS: RANOLAZINE 500 MG TABLET PO SCH ×2 (09:34→21:26)
[2022-07-13] MEDS: GABAPENTIN 100 MG CAPSULE PO SCH ×2 (09:34→21:26)
[2022-07-13] MEDS: GLIMEPIRIDE 2 MG TABLET PO SCH (09:35)
[2022-07-13] MEDS: DOCUSATE SODIUM 100 MG CAPSULE PO SCH ×2 (09:35→21:26)
[2022-07-13] MEDS: ATORVASTATIN 40 MG TABLET PO SCH (21:26)
[2022-07-13] MEDS: allopurinoL 300 MG TABLET PO SCH (21:26)
[2022-07-13] MEDS: CITALOPRAM 20 MG TABLET PO SCH (21:26)
[2022-07-14] MEDS: ALBUTEROL 2.5 MG/3 ML NEB RESP TX SCH ×4 (02:06→19:20)
[2022-07-14 05:52] LABS: Basophils # 0.1 10*3/uL (0.0-0.2); Basophils % 0.7 % (0.0-0.8); Eosinophils # 0.3 10*3/uL (0.0-0.87); Eosinophils % 4.3 % (0.00-10.9); Hematocrit 32.3 VOL% (35.7-47.0); Hemoglobin 10.3 GM/DL (12.0-16.0); Immature Granulocytes % 0.7 %; Immature Granulocytes Absolute 0.05 #; Lymphocytes # 2.4 10*3/uL (1.4-4.0); Lymphocytes % 32.2 % (21.3-54.2); Mean Corpuscular HGB Conc 31.9 GM/DL (32-36); Mean Corpuscular Volume 100.6 FL (87-102); Mean Platelet Volume 10.6 FL (9.6-12.0); Monocytes # 0.5 10*3/uL (0.11-0.8); Monocytes % 6.6 % (1.7-12.7); Neutrophils % 55.5 % (38.7-73.9); Platelet Count 144 T/CUMM (130-400); Red Blood Count 3.21 MC/CUMM (3.8-5.5); Red Cell Distribution Width 15.7 % (9.3-17.3); White Blood Count 7.29 T/CUMM (4-12)
[2022-07-14 06:17] LABS: Bilirubin,Total 0.5 MG/DL (0.20-1.00); Calcium 8.9 MG/DL (8.5-10.1); Potassium 4.9 MMOL/L (3.5-5.1); Total Protein 5.8 G/DL (6.4-8.2)
[2022-07-14] MEDS: INSULIN LISPRO 100 UNIT/ML SUBCUT SCH ×4 (08:08→20:16)
[2022-07-14] MEDS: SACUBITRIL/VALSARTAN 49-51 MG TABLET PO SCH ×2 (09:21→20:18)
[2022-07-14] MEDS: ISOSORBIDE MONONITRATE 30 MG TABLET PO SCH (09:21)
[2022-07-14] MEDS: ASPIRIN CHEW 81 MG TABLET PO SCH (09:21)
[2022-07-14] MEDS: GLIMEPIRIDE 2 MG TABLET PO SCH (09:21)
[2022-07-14] MEDS: guaiFENesin/DM ER 600-30 MG TABLET PO SCH ×2 (09:21→20:18)
[2022-07-14] MEDS: TERAZOSIN 5 MG CAPSULE PO SCH (09:21)
[2022-07-14] MEDS: EZETIMIBE 10 MG TABLET PO SCH (09:22)
[2022-07-14] MEDS: MULTIVITAMIN (OCUVITE) TABLET PO SCH (09:22)
[2022-07-14] MEDS: ASCORBIC ACID 500 MG TABLET PO SCH (09:22)
[2022-07-14] MEDS: RANOLAZINE 500 MG TABLET PO SCH ×2 (09:22→20:17)
[2022-07-14] MEDS: GABAPENTIN 100 MG CAPSULE PO SCH ×2 (09:22→20:18)
[2022-07-14] MEDS: DOCUSATE SODIUM 100 MG CAPSULE PO SCH ×2 (09:22→20:18)
[2022-07-14] MEDS: PANTOPRAZOLE 40 MG TABLET PO SCH (09:23)
[2022-07-14] MEDS: MAGNESIUM OXIDE 400 MG TABLET PO SCH ×2 (09:23→20:18)
[2022-07-14] MEDS: POTASSIUM CHLORIDE 20 MEQ TABLET PO SCH ×2 (09:23→20:17)
[2022-07-14] MEDS: DAPAGLIFLOZIN 10 MG TABLET PO SCH (09:23)
[2022-07-14] MEDS: CITALOPRAM 20 MG TABLET PO SCH (20:17)
[2022-07-14] MEDS: allopurinoL 300 MG TABLET PO SCH (20:18)
[2022-07-14] MEDS: ATORVASTATIN 40 MG TABLET PO SCH (20:18)
[2022-07-15] MEDS: ALBUTEROL 2.5 MG/3 ML NEB RESP TX SCH ×9 (00:49→23:11)
[2022-07-15] MEDS: INSULIN LISPRO 100 UNIT/ML SUBCUT SCH ×5 (08:03→21:44)
[2022-07-15] MEDS: methylPREDNISolone SOD SUC 40 MG/1 ML VIAL IV SCH ×2 (09:54→15:32)
[2022-07-15] MEDS: RANOLAZINE 500 MG TABLET PO SCH ×2 (09:57→21:46)
[2022-07-15] MEDS: TERAZOSIN 5 MG CAPSULE PO SCH (09:57)
[2022-07-15] MEDS: DOCUSATE SODIUM 100 MG CAPSULE PO SCH ×2 (09:57→21:49)
[2022-07-15] MEDS: guaiFENesin/DM ER 600-30 MG TABLET PO SCH ×2 (09:57→21:46)
[2022-07-15] MEDS: MULTIVITAMIN (OCUVITE) TABLET PO SCH (09:57)
[2022-07-15] MEDS: ASCORBIC ACID 500 MG TABLET PO SCH (09:58)
[2022-07-15] MEDS: GABAPENTIN 100 MG CAPSULE PO SCH ×2 (09:58→21:49)
[2022-07-15] MEDS: MAGNESIUM OXIDE 400 MG TABLET PO SCH ×2 (09:58→21:56)
[2022-07-15] MEDS: SACUBITRIL/VALSARTAN 49-51 MG TABLET PO SCH ×2 (09:58→21:46)
[2022-07-15] MEDS: POTASSIUM CHLORIDE 20 MEQ TABLET PO SCH ×2 (09:58→21:46)
[2022-07-15] MEDS: EZETIMIBE 10 MG TABLET PO SCH (09:58)
[2022-07-15] MEDS: ISOSORBIDE MONONITRATE 30 MG TABLET PO SCH (09:59)
[2022-07-15] MEDS: ASPIRIN CHEW 81 MG TABLET PO SCH (09:59)
[2022-07-15] MEDS: PANTOPRAZOLE 40 MG TABLET PO SCH (09:59)
[2022-07-15] MEDS: DAPAGLIFLOZIN 10 MG TABLET PO SCH (09:59)
[2022-07-15] MEDS: GLIMEPIRIDE 2 MG TABLET PO SCH (09:59)
[2022-07-15] MEDS ORDERED: HYDROcodone/CHLORPHENIRAMINE ER 5 ML UDCUP PO PRN (13:12)
[2022-07-15] MEDS: APIXABAN 5 MG TABLET PO SCH (21:48)
[2022-07-15] MEDS: allopurinoL 300 MG TABLET PO SCH (21:49)
[2022-07-15] MEDS: CITALOPRAM 20 MG TABLET PO SCH (21:49)
[2022-07-15] MEDS: ATORVASTATIN 40 MG TABLET PO SCH (21:56)
[2022-07-16] MEDS: methylPREDNISolone SOD SUC 40 MG/1 ML VIAL IV SCH ×2 (00:58→09:17)
[2022-07-16] MEDS: ALBUTEROL 2.5 MG/3 ML NEB RESP TX SCH ×3 (03:30→07:00)
[2022-07-16] MEDS: INSULIN LISPRO 100 UNIT/ML SUBCUT SCH ×2 (09:06→13:26)
[2022-07-16] MEDS: ASCORBIC ACID 500 MG TABLET PO SCH (09:18)
[2022-07-16] MEDS: TERAZOSIN 5 MG CAPSULE PO SCH (09:18)
[2022-07-16] MEDS: ASPIRIN CHEW 81 MG TABLET PO SCH (09:18)
[2022-07-16] MEDS: MULTIVITAMIN (OCUVITE) TABLET PO SCH (09:18)
[2022-07-16] MEDS: EZETIMIBE 10 MG TABLET PO SCH (09:18)
[2022-07-16] MEDS: DAPAGLIFLOZIN 10 MG TABLET PO SCH (09:18)
[2022-07-16] MEDS: RANOLAZINE 500 MG TABLET PO SCH (09:18)
[2022-07-16] MEDS: DOCUSATE SODIUM 100 MG CAPSULE PO SCH (09:19)
[2022-07-16] MEDS: APIXABAN 5 MG TABLET PO SCH (09:19)
[2022-07-16] MEDS: PANTOPRAZOLE 40 MG TABLET PO SCH (09:19)
[2022-07-16] MEDS: SACUBITRIL/VALSARTAN 49-51 MG TABLET PO SCH (09:19)
[2022-07-16] MEDS: guaiFENesin/DM ER 600-30 MG TABLET PO SCH (09:19)
[2022-07-16] MEDS: ISOSORBIDE MONONITRATE 30 MG TABLET PO SCH (09:19)
[2022-07-16] MEDS: GABAPENTIN 100 MG CAPSULE PO SCH (09:19)
[2022-07-16] MEDS: GLIMEPIRIDE 2 MG TABLET PO SCH (09:19)
[2022-07-16] MEDS: POTASSIUM CHLORIDE 20 MEQ TABLET PO SCH (09:29)
[2022-07-16] MEDS: MAGNESIUM OXIDE 400 MG TABLET PO SCH (09:30)
[2022-07-16 12:19] VITALS: BP 175/68
== END 2022-07-16 12:00 | disposition home or self-care (01) ==
LOC: N.TELES
PROVIDERS: ADMIT Family Medicine; ATTEND Family Medicine